=== PATIENT | male | born 1995 | race American Indian/Alaskan Native ===

== ENCOUNTER 2021-12-17 19:58 | Emergency (ER) | payer OTHER ==
[2021-12-17] MEDS ORDERED: CYCLOBENZAPRINE 10 MG TABLET PO STA (21:50)
[2021-12-17] MEDS ORDERED: LIDOCAINE PATCH 5% TOP STA (21:50)
[2021-12-17] MEDS ORDERED: ACETAMINOPHEN 325 MG TABLET PO STA (21:50)
[2021-12-17] MEDS ORDERED: KETOROLAC 60 MG/2 ML VIAL IM STA (22:50)
[2021-12-17] MEDS ORDERED: CYCLOBENZAPRINE 10 MG Prepack 2 PO STA (23:40)
--- NOTE | 2021-12-17 23:51 | ED Physician Documentation ---
History of Present Illness - Stated complaint Stated Complaint: BACK PX - Chief complaint Chief Complaint: Ext Problem - History obtained from History obtained from: Patient - Additonal information Additional information: Patient is a 26-year-old male with mid thoracic back pain that started just prior to arrival. He was helping his spouse lift a bookshelf into a vehicle when he felt sudden pain to the area. He reports having a compression fracture in a similar region when he was in high school from a sledding accident. He otherwise denies fall or recent injury to the area. Denies radiation of the pain. It is sharp it is worse with movement. He has not taken anything for it. Denies fever, difficulty breathing, chest pain, abdominal pain, vomiting, bowel or bladder incontinence.Denies saddle anesthesia. Review of Systems Constitutional: denies: Fever Nose: denies: Congestion Cardiac: denies: Chest pain / pressure, Palpitations Respiratory: denies: Dyspnea, Cough GI: denies: Abdominal Pain, Nausea, Vomiting : denies: Incontinent Skin: denies: Rash Musculoskeletal: reports: Back pain. denies: Extremity pain Neurologic: denies: Numbness, Syncope, Headache, Head injury PD PAST MEDICAL HISTORY - Present Medications Home Medications: Ambulatory Orders Medication Instructions Recorded Confirmed Cyclobenzaprine [Flexeril] 10 mg PO TID PRN #12 tablet 12/17/21 Lidocaine Patch 5% [Lidoderm Patch] 1 patch TOP DAILY PRN #10 patch 12/17/21 - Allergies Allergies/Adverse Reactions: Allergies Allergy/AdvReac Type Severity Reaction Status Date / Time mesalamine [From Pentasa] Allergy Rash Verified 12/17/21 20:04 PD ED PE NORMAL - General General: Alert and oriented X 3, No acute distress, Well developed/nourished - HEENT HEENT: Atraumatic, Moist mucous membranes - Neck Neck: Supple, no meningeal sign, No bony TTP, C-Spine cleared by NEXUS criteria - Cardiac Cardiac: RRR, No murmur, Strong equal pulses - Respiratory Respiratory: No respiratory distress, Clear bilaterally - Abdomen Abdomen: Normal bowel sounds, Soft, Non tender, Non distended - Back Back: No spinal TTP - Derm Derm: No rash - Extremities Extremities: No deformity, No edema, Other (Distal pulses intact, Strength and sensation intact to lower extremities) - Neuro Neuro: Alert and oriented X 3, No motor deficit, No sensory deficit, Normal speech - Psych Psych: Normal mood, Normal affect PD ED PE EXPANDED - Back Back visual: 1 - tenderness (visible spasm) Results - Vitals Vitals: Vital Signs - 24 hr 12/17/21 12/17/21 20:04 23:30 Temperature 36.4 C L Heart Rate 99 97 Respiratory 16 18 Rate Blood Pressure 141/91 H 136/89 H O2 Saturation 96 96 Oxygen O2 Source Room air PD MEDICAL DECISION MAKING - ED course Complexity details: re-evaluated patient, d/w patient, d/w family ED course: Patient evaluated for mid back pain after lifting injury. Neurovascularly intact. No symptoms to suggest epidural abscess or hematoma. No signs of cauda equina. Afebrile. On exam has visible spasm. Do not think his symptoms are suggestive of a cardiac or pulmonary process or dissection. Doubt imaging would be helpful at this time as I do not suspect fracture or dislocation based on mechanism. Patient had improvement with Medications received during his visit. We will continue with supportive care. Patient and spouse were counseled on ret urn precautions. Departure - Departure Disposition: 01 Home, Self Care Clinical Impression: Strain of back Condition: Stable Instructions: ED Back Care Tips Prescriptions: Cyclobenzaprine [Flexeril] 10 mg PO TID PRN #12 tablet PRN Reason: Spasms Lidocaine Patch 5% [Lidoderm Patch] 1 patch TOP DAILY PRN #10 patch PRN Reason: pain Comments: Lawson kaye have been evaluated for pain to your back after an injury this evening. Based on the mechanism I do not suspect that you would have a broken bone and that the pain is likely related to a spasm in your back. You have received medications to help you with this and I have sent prescriptions for lidocaine patches and Flexeril to [place] [facility] [place] Flexeril can cause drowsiness so please do not drive or operate machinery while taking this medication. Also avoid using alcohol while taking this medication.If you have any new or worsening symptoms such as increased pain, change of location to your pain, difficulty breathing, chest pain, leg pain or weakness, trouble controlling your bowel or bladder function please return to the emergency department. Discharge Date/Time: 12/18/21 00:12
[2021-12-18 00:12] VITALS: BP 136/89
== END 2021-12-18 00:12 | disposition home or self-care (01) ==
LOC: ED 19:58
DX: S29.012A Strain of muscle and tendon of back wall of thorax, initial encounter (principal); X50.0XXA Overexertion from strenuous movement or load, initial encounter; Y93.89 Activity, other specified
CPT/HCPCS: 96372; 99282; 99283; A9270

== ENCOUNTER 2022-01-18 01:34 | Emergency (ER) | payer OTHER ==
[2022-01-18 01:59] LABS: BASOPHILS # (AUTO) 0.1 10^3/uL (0.0-0.1); BASOPHILS % (AUTO) 0.5 %; EOSINOPHILS # (AUTO) 0.1 10^3/uL (0.0-0.7); HGB - HEMOGLOBIN 14.1 g/dL (14.0-18.0); LYMPHOCYTES # (AUTO) 1.7 10^3/uL (1.5-3.5); LYMPHOCYTES % (AUTO) 13.5 %; MEAN CORPUSCULAR HGB CONC 32.8 g/dL (32.0-36.0); MEAN CORPUSCULAR VOLUME 79.3 fL (80.0-94.0); MEAN PLATELET VOLUME 9.4 fL (7.4-11.4); MONOCYTES # (AUTO) 0.7 10^3/uL (0.0-1.0); MONOCYTES % (AUTO) 5.8 %; NEUTROPHILS # (AUTO) 9.9 10^3/uL (1.5-6.6); PLT - PLATELET COUNT 423 10^3/uL (130-450); RED BLOOD COUNT 5.42 10^6/uL (4.70-6.10); RED CELL DISTRIBUTION WIDTH 13.3 % (12.0-15.0); WHITE BLOOD COUNT 12.5 x10^3/uL (4.8-10.8)
[2022-01-18 02:00] LABS: BILIRUBIN,URINE NEGATIVE (NEGATIVE); CLARITY,URINE CLEAR (CLEAR); GLUCOSE, URINE (UA) NEGATIVE (NEGATIVE); KETONES,URINE (UA) NEGATIVE (NEGATIVE); LEUKOCYTE ESTERASE, URINE NEGATIVE (NEGATIVE); NITRITE,URINE NEGATIVE (NEGATIVE); OCCULT BLOOD,URINE MODERATE (NEGATIVE); PH,URINE 5.5 PH (5.0-7.5); PROTEIN,URINE NEGATIVE (NEGATIVE); UROBILINOGEN,URINE 0.2 (NORMAL) E.U./dL (NORMAL)
[2022-01-18 02:11] LABS: ALBUMIN 4.4 g/dL (3.2-5.5); ALBUMIN/GLOBULIN RATIO 1.2 (1.0-2.2); BILIRUBIN,TOTAL 0.6 mg/dL (0.2-1.0); CALCIUM 9.8 mg/dL (8.5-10.3); CREATININE 1.6 mg/dL (0.6-1.2); POTASSIUM 3.6 mmol/L (3.5-5.0)
[2022-01-18 02:21] LABS: BACTERIA,URINE None Seen /HPF (None Seen); SQUAMOUS EPITHELIAL CELL,UR NONE SEEN (<= Few); WBC,URINE 0-3 /HPF (0-3)
[2022-01-18] MEDS ORDERED: HYDROmorphone 1 MG/ML CARPUJECT IVP STA ×2 (02:22→03:58)
[2022-01-18] MEDS ORDERED: ONDANSETRON 4 MG/2 ML VIAL IVP STA (02:22)
[2022-01-18] MEDS ORDERED: SODIUM CHLORIDE 0.9% 1,000 ML IV STA (02:22)
--- NOTE | 2022-01-18 03:10 | ED Physician Documentation ---
PD HPI ABD PAIN - Stated complaint Stated Complaint: BACK TO ABD PX - Chief complaint Chief Complaint: Abd Pain - Additional information Additional information: Patient is a 26-year-old male with past medical significant for Crohn's disease on Humira presenting to the emergency department with abdominal pain. Endorses for left-sided abdominal pain ongoing x2 days. Is associated with nausea vomiting. Endorses for chronic diarrhea that is unchanged. Specifically denies for any bloody stools. Denies for any fever at home. Denies similar pain in the past. Review of Systems Ten Systems: 10 systems reviewed and negative Constitutional: denies: Fever GI: reports: Abdominal Pain, Nausea, Vomiting, Diarrhea PD PAST MEDICAL HISTORY - Present Medications Home Medications: Ambulatory Orders Medication Instructions Recorded Confirmed Cyclobenzaprine [Flexeril] 10 mg PO TID PRN #12 tablet 12/17/21 Lidocaine Patch 5% [Lidoderm Patch] 1 patch TOP DAILY PRN #10 patch 12/17/21 Ondansetron Odt [Zofran Odt] 4 mg TL Q6H PRN #10 tablet 01/18/22 oxyCODONE [Roxicodone] 5 mg PO ONCE #10 tablet 01/18/22 - Allergies Allergies/Adverse Reactions: Allergies Allergy/AdvReac Type Severity Reaction Status Date / Time mesalamine [From Pentasa] Allergy Rash Verified 01/18/22 01:46 PD ED PE NORMAL - Vitals Vital signs reviewed: Yes - General General: Alert and oriented X 3. No: No acute distress (Patient holding his side in acute distress.) - HEENT HEENT: Atraumatic, PERRL, EOMI, Ears normal, Moist mucous membranes - Neck Neck: Supple, no meningeal sign, No bony TTP, No adenopathy, No JVD - Cardiac Cardiac: RRR, No murmur, No gallop - Respiratory Respiratory: No respiratory distress, Clear bilaterally - Abdomen Abdomen: Normal bowel sounds, Soft, Non tender - Male Male : Deferred - Rectal Rectal: Deferred - Back Back: No CVA TTP - Derm Derm: Normal color - Extremities Extremities: No deformity, No edema - Neuro Neuro: Alert and oriented X 3, No motor deficit, No sensory deficit Results - Vitals Vitals: Vital Signs - 24 hr 01/18/22 01/18/22 01/18/22 01:42 01:58 02:56 Temperature 36.2 C L Heart Rate 100 80 90 Respiratory 18 22 14 Rate Blood Pressure 127/92 H 129/84 H 147/90 H O2 Saturation 99 98 95 01/18/22 01/18/22 04:00 06:00 Temperature Heart Rate 92 96 Respiratory 18 18 Rate Blood Pressure 120/71 132/77 H O2 Saturation 94 95 Oxygen O2 Source Room air - Labs Labs: Laboratory Tests 01/18/22 01/18/22 01/18/22 01:52 01:52 01:52 WBC 12.5 H RBC 5.42 Hgb 14.1 Hct 43.0 MCV 79.3 L MCH 26.0 L MCHC 32.8 RDW 13.3 Plt Count 423 MPV 9.4 Neut # (Auto) 9.9 H Lymph # (Auto) 1.7 [place] # (Auto) 0.7 Eos # (Auto) 0.1 Baso # (Auto) 0.1 Absolute Nucleated RBC 0.00 Nucleated RBC % 0.0 Sodium 136 Potassium 3.6 Chloride 101 Carbon Dioxide 21 Anion Gap 14.0 H BUN 13 Creatinine 1.6 H Estimated GFR (MDRD) 53 L Glucose 123 H Calcium 9.8 Total Bilirubin 0.6 AST 43 H ALT 74 H Alkaline Phosphatase 47 Total Protein 8.0 Albumin 4.4 Globulin 3.6 Albumin/Globulin Ratio 1.2 Lipase 34 Urine Color YELLOW Urine Clarity CLEAR Urine pH 5.5 Ur Specific [place] >=1.030 H Urine Protein NEGATIVE Urine Glucose (UA) NEGATIVE Urine Ketones NEGATIVE Urine Occult Blood MODERATE H Urine Nitrite NEGATIVE Urine Bilirubin NEGATIVE Urine Urobilinogen 0.2 (NORMAL) Ur Leukocyte Esterase NEGATIVE Urine RBC 6-10 H Urine WBC 0-3 Ur Squamous Epith Cells NONE SEEN Urine Bacteria None Seen Ur Microscopic Review INDICATED Urine Culture Comments NOT INDICATED PD MEDICAL DECISION MAKING - ED course Complexity details: reviewed results, d/w patient, d/w family ED course: Patient is 26-year-old male presenting to the emergency department with left- sided flank and abdominal pain. Past medical significant for Crohn's disease and distant history of partial hemicolectomy. Afebrile, hemodynamically stable on arrival to the emergency department. IV access was obtained and patient was given medication for pain control. Abdominal exam was benign. Labs obtained demonstrated a very minimal leukocytosis as well as a mild elevation in patient's creatinine.Urine negative for indications of infection. Patient received IV hydration. CT of the abdomen pelvis was obtained which demonstrated a 4 mm left-sided obstructive stone in the distal ureter. Patient was observed in the emergency department for several hours. On reevaluation was found to be resting comfortably and in no acute distress. He reported near complete resolution of his symptoms. At this time will discharge with medication for symptomatic management. Encourage careful follow-up with primary care and/or [facility] as needed. Otherwise clear return precautions and follow-up instructions were given prior to discharge. Departure - Departure Disposition: Home, Self Care Clinical Impression: Kidney stone Instructions: ED Stone Renal W Colic Prescriptions: oxyCODONE [Roxicodone] 5 mg PO ONCE #10 tablet Ondansetron Odt [Zofran Odt] 4 mg TL Q6H PRN #10 tablet PRN Reason: Nausea / Vomiting Comments: Thank you for allowing us to care for you today at [facility]. Your prescriptions were sent electronically to the [facility] pharmacy. Thank again for being patient with us this evening. I am sorry about the delays you experienced here in the emergency department. Tonight in the emergency department you are diagnosed with a 4 mm kidney stone. Stones of this size have a high probability of passing on their own Within a few days. I will be discharging with the medication you can take for pain control and nausea. Please drink plenty of fluids and get plenty of rest. Please follow-up with your primary care doctor soon as possible in order to make an appointment for medical recheck. Additionally as needed you can always follow-up directly with [facility]: [place], [place], [phone]
[2022-01-18] MEDS ORDERED: IOVERSOL 320 100 ML VIAL IVP ONE ×2 (03:41→03:57)
[2022-01-18 06:37] VITALS: BP 132/77
--- NOTE | 2022-01-18 08:20 | CT Report ---
PROCEDURE: Abdomen/Pelvis W INDICATIONS: Left flank pain, h/o crones, h/o partial colectomy CONTRAST: IV CONTRAST: Optiray 320 ml: 100 PO CONTRAST: *NO PO CONTRAST TECHNIQUE: After the administration of contrast, 5 mm thick sections acquired from the diaphragms to the sym physis. 5 mm thick coronal and sagittal reformats were acquired. For radiation dose reduction, the following was used: automated exposure control, adjustment of mA and/or kV according to patient size . COMPARISON: None. FINDINGS: Image quality: Excellent. ABDOMEN: Lung bases: Lung bases are clear. Heart size is normal. Solid organs: Liver and spleen are normal in size and enhancement. Gallbladder is normal. Biliary system is non dilated. Pancreas enhances normally. No adrenal nodules. There are multiple bilateral nonobstructing renal calculi. There is decreased left nephrogram and mild left hydronephrosis. The l eft ureter is dilated to the level of a 4 mm calculus located within the distal ureter, proximal to t he UVJ. Peritoneum and bowel: Bowel loops demonstrate normal wall thickness and caliber. No free fluid or a ir. There has been prior right hemicolectomy. A few scattered distal colonic diverticula are present . Mesenteric fat planes are well maintained. Anastomotic sutures are noted in the right lower quadran t. Nodes and vessels: No retroperitoneal or mesenteric adenopathy by size criteria. Aorta and inferior vena cava are normal in size. Miscellaneous: No ventral hernias. PELVIS: Genitourinary: Bladder wall thickness is normal. Miscellaneous: No inguinal hernias or adenopathy. Bones: No suspicious bony lesions. No vertebral body compression fractures. IMPRESSION: 1. 4 mm obstructing calculus within the distal left ureter associated with mild left hydronephrosis. Multiple small bilateral nonobstructing renal calculi are identified as well. 2. Hepatomegaly with fatty infiltration of the liver. Reviewed by: Margarito Ortiz on 01/18/2022 8:19 AM PDT Approved by: Margarito Ortiz on 01/18/2022 8:19 AM PDT Station ID: [id number]
== END 2022-01-18 07:42 | disposition home or self-care (01) ==
LOC: ED 01:34
DX: N13.2 Hydronephrosis with renal and ureteral calculous obstruction (principal)
CPT/HCPCS: 36415; 74177; 80053; 81001; 83690; 85025; 96374; 96376; 99283; 99284; J1170; Q9967; 81003; 87086

== ENCOUNTER 2022-01-26 12:59 | Emergency (ER) | payer OTHER ==
[2022-01-26 13:37] LABS: BASOPHILS # (AUTO) 0.1 10^3/uL (0.0-0.1); BASOPHILS % (AUTO) 0.6 %; EOSINOPHILS # (AUTO) 0.3 10^3/uL (0.0-0.7); EOSINOPHILS % (AUTO) 3.7 %; HCT - HEMATOCRIT 44.6 % (42.0-52.0); HGB - HEMOGLOBIN 14.1 g/dL (14.0-18.0); LYMPHOCYTES # (AUTO) 1.8 10^3/uL (1.5-3.5); LYMPHOCYTES % (AUTO) 19.8 %; MEAN CORPUSCULAR HEMOGLOBIN 25.9 pg (27.0-31.0); MEAN CORPUSCULAR HGB CONC 31.6 g/dL (32.0-36.0); MEAN PLATELET VOLUME 9.5 fL (7.4-11.4); MONOCYTES # (AUTO) 0.9 10^3/uL (0.0-1.0); MONOCYTES % (AUTO) 9.5 %; NEUTROPHILS # (AUTO) 6.1 10^3/uL (1.5-6.6); NEUTROPHILS % (AUTO) 66.1 %; PLT - PLATELET COUNT 363 10^3/uL (130-450); RED BLOOD COUNT 5.44 10^6/uL (4.70-6.10); RED CELL DISTRIBUTION WIDTH 13.9 % (12.0-15.0); WHITE BLOOD COUNT 9.3 x10^3/uL (4.8-10.8)
[2022-01-26] MEDS ORDERED: KETOROLAC 30 MG/ML VIAL IVP STA (13:45)
[2022-01-26] MEDS ORDERED: LIDOCAINE-MPF 2% 7.5 ML in SODIUM CHLORIDE 0.9% 50 ML IV STA (13:45)
--- NOTE | 2022-01-26 13:47 | ED Physician Documentation ---
History of Present Illness - Stated complaint Stated Complaint: LT FLANK PX - Chief complaint Chief Complaint: Abd Pain - History obtained from History obtained from: Patient - History of Present Illness Pain level max: 8 Pain level now: 6 - Additonal information Additional information: 26-year-old male presents to the emergency department left flank pain. Has been ongoing for the past week. He was seen here last week and diagnosed with a 4 mm left ureteral stone. He states he took Percocet this morning but did not help the pain. Nothing makes it better or worse. No vomiting. Some nausea. No fevers. Review of Systems Constitutional: denies: Fever, Chills Respiratory: denies: Cough GI: reports: Nausea. denies: Vomiting, Diarrhea, Hematemesis, Bloody / black stool : denies: Dysuria, Frequency, Hesitancy, Incontinent Skin: denies: Rash Musculoskeletal: denies: Neck pain, Back pain Neurologic: denies: Headache PD PAST MEDICAL HISTORY - Past Medical History Past Medical History: Yes : Kidney stones - Present Medications Home Medications: Ambulatory Orders Medication Instructions Recorded Confirmed Ondansetron Odt [Zofran Odt] 4 mg TL Q6H PRN #10 tablet 01/18/22 01/26/22 oxyCODONE [Roxicodone] 5 mg PO ONCE #10 tablet 01/18/22 01/26/22 Adalimumab [Humira(Cf) Pen] 1 syr INJ UD 01/26/22 01/26/22 Albuterol Sulfate [Proair Hfa 1 puffs INH Q4HR PRN 01/26/22 01/26/22 Inhaler] Fluticasone/Salmeterol [Advair 1 puffs INH DAILY 01/26/22 01/26/22 250-50 Diskus] Ibuprofen [Motrin] 800 mg PO Q8H PRN #30 tablet 01/26/22 Oxycodone HCl/Acetaminophen 1 - 2 each PO Q6H PRN #14 tablet 01/26/22 [Percocet 5-325 mg Tablet] Tamsulosin [Flomax] 0.4 mg PO DAILY #14 cap 01/26/22 - Allergies Allergies/Adverse Reactions: Allergies Allergy/AdvReac Type Severity Reaction Status Date / Time mesalamine [From Pentasa] Allergy Rash Verified 01/26/22 13:17 - Living Situation Living Situation: reports: With family Living Arrangement: reports: At home PD ED PE NORMAL - Vitals Vital signs reviewed: Yes - General General: Alert and oriented X 3, No acute distress - HEENT HEENT: PERRL, Moist mucous membranes - Neck Neck: Supple, no meningeal sign - Cardiac Cardiac: RRR, Strong equal pulses - Respiratory Respiratory: No respiratory distress, Clear bilaterally - Abdomen Abdomen: Soft, Non tender, Non distended - Back Back: No CVA TTP - Derm Derm: Warm and dry - Extremities Extremities: No edema - Neuro Neuro: Alert and oriented X 3 - Psych Psych: Normal mood, Normal affect Results - Vitals Vitals: Vital Signs - 24 hr 01/26/22 01/26/22 13:12 14:55 Temperature 36.3 C L 36.6 C Heart Rate 93 85 Respiratory 16 16 Rate Blood Pressure 139/80 H 144/93 H O2 Saturation 98 99 Oxygen O2 Source Room air - Labs Labs: Laboratory Tests 01/26/22 01/26/22 01/26/22 13:22 13:24 13:24 WBC 9.3 RBC 5.44 Hgb 14.1 Hct 44.6 MCV 82.0 MCH 25.9 L MCHC 31.6 L RDW 13.9 Plt Count 363 MPV 9.5 Neut # (Auto) 6.1 Lymph # (Auto) 1.8 [place] # (Auto) 0.9 Eos # (Auto) 0.3 Baso # (Auto) 0.1 Absolute Nucleated RBC 0.00 Nucleated RBC % 0.0 Sodium 139 Potassium 4.2 Chloride 105 Carbon Dioxide 23 Anion Gap 11.0 BUN 9 Creatinine 1.5 H Estimated GFR (MDRD) 57 L Glucose 103 H Calcium 9.3 Total Bilirubin 0.9 AST 47 H ALT 87 H Alkaline Phosphatase 45 Total Protein 7.9 Albumin 4.2 Globulin 3.7 Albumin/Globulin Ratio 1.1 Lipase 34 Urine Color DARK YELLOW Urine Clarity CLEAR Urine pH 5.5 Ur Specific [place] 1.025 Urine Protein NEGATIVE Urine Glucose (UA) NEGATIVE Urine Ketones NEGATIVE Urine Occult Blood NEGATIVE Urine Nitrite NEGATIVE Urine Bilirubin NEGATIVE Urine Urobilinogen 0.2 (NORMAL) Ur Leukocyte Esterase NEGATIVE Ur Microscopic Review NOT INDICATED Urine Culture Comments NOT INDICATED PD MEDICAL DECISION MAKING - ED course Complexity details: reviewed old records, reviewed results, re-evaluated patient, considered differential, d/w patient ED course: Patient with a known left-sided 4 mm ureteral stone. Pain resolved with Toradol and IV lidocaine. Will place on Motrin, Percocet, Flomax for home. We will have him follow-up with urology for further care. No indication for repeat CT scan at this time. he will increase his water intake at home as well. Patient counseled regarding signs and symptoms for which I believe and urgent re- evaluation would be necessary. Patient with good understanding of and agreement to plan and is comfortable going home at this time This document was made in part using voice recognition software. While efforts are made to proofread this document, sound alike and grammatical errors may occur. Departure - Departure Disposition: Home, Self Care Clinical Impression: Ureteral calculus, left Condition: Good Instructions: ED Stone Renal W Colic Follow-Up: Iqra Ruggiero MD [Provider Admit Priv/Credential] - Kaitlin Zhang MD [Physician No Access] - Prescriptions: Tamsulosin [Flomax] 0.4 mg PO DAILY #14 cap Ibuprofen [Motrin] 800 mg PO Q8H PRN #30 tablet PRN Reason: PAIN &/OR FEVER Oxycodone HCl/Acetaminophen [Percocet 5-325 mg Tablet] 1 - 2 each PO Q6H PRN #14 tablet PRN Reason: pain Comments: Your medications were sent to the [facility] pharmacy in [place]. Drink plenty of water. Return if you worsen. Make sure to follow-up with urology for further care. The stone should be able to pass. The Motrin will help stop the spasming of the ureter. I am prescribing a short course of narcotic pain medication for you. These are potentially dangerous and addictive medications that should be used carefully. These medications may constipate you. Take an [id number] stool softener (docusate) twice daily with plenty of water while taking these medications. If you go 24 hours without a bowel movement, take [id number] miralax, per package instructions. Do not drink or drive while taking these medications. If you received narcotic or sedating medications while in the emergency department, do not drive for 24 hours. Store this medication in a safe, secure place and out of reach of children. It is a violation of federal law to give or sell this medication to another person or to use in a manner other than prescribed. The ED will not refill narcotic prescriptions, including prescriptions lost or stolen. To dispose of unwanted medications: 1. [facility] at [address] in [place] has a medication drop box. They accept prescription medications (in pill form) Friday through Friday 9:00 a.m. to 5:00 p.m. 2. The [facility] [employer] accepts prescription medications (in pill form only) for disposal year round. Call for more information. 3. Contact the [facility] for the next [facility] sponsored prescription drug collection event. , [phone], or [phone]; Discharge Date/Time: 01/26/22 15:03
[2022-01-26 13:53] LABS: ALBUMIN 4.2 g/dL (3.2-5.5); ALBUMIN/GLOBULIN RATIO 1.1 (1.0-2.2); BILIRUBIN,TOTAL 0.9 mg/dL (0.2-1.0); CALCIUM 9.3 mg/dL (8.5-10.3); CREATININE 1.5 mg/dL (0.6-1.2); POTASSIUM 4.2 mmol/L (3.5-5.0); TOTAL PROTEIN 7.9 g/dL (6.7-8.2)
[2022-01-26 14:24] LABS: BILIRUBIN,URINE NEGATIVE (NEGATIVE); GLUCOSE, URINE (UA) NEGATIVE (NEGATIVE); KETONES,URINE (UA) NEGATIVE (NEGATIVE); LEUKOCYTE ESTERASE, URINE NEGATIVE (NEGATIVE); NITRITE,URINE NEGATIVE (NEGATIVE); OCCULT BLOOD,URINE NEGATIVE (NEGATIVE); PH,URINE 5.5 PH (5.0-7.5); PROTEIN,URINE NEGATIVE (NEGATIVE); UROBILINOGEN,URINE 0.2 (NORMAL) E.U./dL (NORMAL)
[2022-01-26 14:25] LABS: CLARITY,URINE CLEAR (CLEAR)
[2022-01-26 14:56] VITALS: BP 144/93
== END 2022-01-26 15:03 | disposition home or self-care (01) ==
LOC: ED 12:59
DX: N20.1 Calculus of ureter (principal)
CPT/HCPCS: 36415; 80053; 81003; 83690; 85025; 96374; 96375; 99284; J7040; 81001; 87086

== ENCOUNTER 2022-05-10 12:37 | Emergency (ER) | payer OTHER ==
[2022-05-10] MEDS ORDERED: HYDROmorphone 1 MG/ML CARPUJECT IVP STA ×3 (12:59→15:59)
[2022-05-10] MEDS ORDERED: SODIUM CHLORIDE 0.9% 1,000 ML IV STA (12:59)
--- NOTE | 2022-05-10 13:00 | ED Physician Documentation ---
PD HPI ABD PAIN - Stated complaint Stated Complaint: ABD PX - Chief complaint Chief Complaint: Abd Pain - History obtained from History obtained from: Patient - Additional information Additional information: 26-year-old gentleman with history of Crohn's first diagnosed in 2017. He has had a 1-1/2 foot bowel resection due to a perforation at that time. He is maintained on semiweekly Humira which he doses at home. Few days ago he ate greasy food and he thinks that is what kicked off his current flare of Crohn's disease with diffuse abdominal pain, vomiting and diarrhea both of which are blood-streaked. He denies fevers. Review of Systems Ten Systems: 10 systems reviewed and negative Constitutional: denies: Fever, Chills Cardiac: denies: Chest pain / pressure, Palpitations Respiratory: denies: Dyspnea, Cough PD PAST MEDICAL HISTORY - Past Medical History : Kidney stones - Present Medications Home Medications: Ambulatory Orders Medication Instructions Recorded Confirmed Ondansetron Odt [Zofran Odt] 4 mg TL Q6H PRN #10 tablet 01/18/22 01/26/22 oxyCODONE [Roxicodone] 5 mg PO ONCE #10 tablet 01/18/22 01/26/22 Adalimumab [Humira(Cf) Pen] 1 syr INJ UD 01/26/22 01/26/22 Albuterol Sulfate [Proair Hfa 1 puffs INH Q4HR PRN 01/26/22 01/26/22 Inhaler] Fluticasone/Salmeterol [Advair 1 puffs INH DAILY 01/26/22 01/26/22 250-50 Diskus] Ibuprofen [Motrin] 800 mg PO Q8H PRN #30 tablet 01/26/22 Oxycodone HCl/Acetaminophen 1 - 2 each PO Q6H PRN #14 tablet 01/26/22 [Percocet 5-325 mg Tablet] Tamsulosin [Flomax] 0.4 mg PO DAILY #14 cap 01/26/22 Ondansetron Odt [Zofran] 4 mg TL Q6H PRN #10 tablet 05/10/22 Oxycodone HCl/Acetaminophen 1 - 2 each PO Q6H PRN #14 tablet 05/10/22 [Percocet 5-325 mg Tablet] predniSONE [Deltasone] 20 mg PO [id number] #21 tab 05/10/22 - Allergies Allergies/Adverse Reactions: Allergies Allergy/AdvReac Type Severity Reaction Status Date / Time mesalamine [From Pentasa] Allergy Rash Verified 05/10/22 12:44 PD ED PE NORMAL - Vitals Vital signs reviewed: Yes - General General: Alert and oriented X 3, Other (He appears uncomfortable and is laying on his right side.) - Cardiac Cardiac: RRR, No murmur - Respiratory Respiratory: No respiratory distress, Clear bilaterally - Abdomen Abdomen: Other (Diminished but not absent bowel sounds, no tenderness.) - Back Back: No CVA TTP, No spinal TTP - Derm Derm: Normal color, Warm and dry - Extremities Extremities: No edema, No calf tenderness / cord - Neuro Neuro: Alert and oriented X 3, Normal speech Results - Vitals Vitals: Vital Signs - 24 hr 05/10/22 05/10/22 12:40 14:44 Temperature 36.8 C Heart Rate 76 72 Respiratory 16 18 Rate Blood Pressure 151/85 H 143/88 H O2 Saturation 100 100 Oxygen O2 Source Room air - Labs Labs: Laboratory Tests 05/10/22 05/10/22 13:25 13:25 WBC 11.6 H RBC 5.33 Hgb 14.2 Hct 43.2 MCV 81.1 MCH 26.6 L MCHC 32.9 RDW 13.9 Plt Count 356 MPV 9.6 Neut # (Auto) 9.4 H Lymph # (Auto) 1.5 [place] # (Auto) 0.6 Eos # (Auto) 0.1 Baso # (Auto) 0.1 Absolute Nucleated RBC 0.00 Nucleated RBC % 0.0 Sodium 139 Potassium 3.6 Chloride 101 Carbon Dioxide 22 Anion Gap 16.0 H BUN 11 Creatinine 1.1 Estimated GFR (MDRD) 81 L Glucose 109 H Calcium 9.9 Total Bilirubin 1.2 H AST 50 H ALT 64 H Alkaline Phosphatase 43 Total Protein 8.2 Albumin 4.7 Globulin 3.5 Albumin/Globulin Ratio 1.3 Lipase 89 H PD MEDICAL DECISION MAKING - ED course ED course: 26-year-old gentleman presents with a Crohn's exacerbation. He was treated is stepwise medications here with improvement in his symptoms and remained without significant tenderness on to repeat examinations here. He passed a p.o. challenge. He declined further observation or inpatient care. This was offered though. Departure - Departure Disposition: 01 Home, Self Care Clinical Impression: Exacerbation of Crohn's disease Condition: Good Record reviewed to determine appropriate education?: Yes Instructions: Disease Crohn Dc Prescriptions: predniSONE [Deltasone] 20 mg PO [id number] #21 tab Oxycodone HCl/Acetaminophen [Percocet 5-325 mg Tablet] 1 - 2 each PO Q6H PRN #14 tablet PRN Reason: pain Ondansetron Odt [Zofran] 4 mg TL Q6H PRN #10 tablet PRN Reason: Nausea / Vomiting Comments: I sent your prescriptions electronically to [facility] in [place]. [place] for next available appointment. Return for new or worsening symptoms. I am prescribing a short course of narcotic pain medication for you. These are potentially dangerous and addictive medications that should be used carefully. These medications may constipate you. Take an ulpv-nqa-pfubtud stool softener (docusate) twice daily with plenty of water while taking these medications. If you go 24 hours without a bowel movement, take ecyo-jlj-nmrzlxh miralax, per package instructions. Do not drink or drive while taking these medications. If you received narcotic or sedating medications while in the emergency department, do not drive for 24 hours. Store this medication in a safe, secure place and out of reach of children. It is a violation of federal law to give or sell this medication to another person or to use in a manner other than prescribed. The ED will not refill narcotic prescriptions, including prescriptions lost or stolen. To dispose of unwanted medications: 1. [facility] at [address] in [place] has a medication drop box. They accept prescription medications (in pill form) Friday through Friday 9:00 a.m. to 5:00 p.m. 2. The [facility] [place] [employer] accepts prescription medications (in pill form only) for disposal year round. Call for more information. 3. Contact the [facility] for the next [facility] sponsored prescription drug collection event. , [phone], or [phone]; Note that many narcotic pain relievers also contain Tylenol/acetaminophen. Please ensure that your total dose of acetaminophen from all sources does not exceed 3 g (3000 mg) per day. Forms: Activity restrictions
[2022-05-10 13:33] LABS: BASOPHILS # (AUTO) 0.1 10^3/uL (0.0-0.1); BASOPHILS % (AUTO) 0.5 %; EOSINOPHILS # (AUTO) 0.1 10^3/uL (0.0-0.7); HCT - HEMATOCRIT 43.2 % (42.0-52.0); HGB - HEMOGLOBIN 14.2 g/dL (14.0-18.0); LYMPHOCYTES # (AUTO) 1.5 10^3/uL (1.5-3.5); LYMPHOCYTES % (AUTO) 12.6 %; MEAN CORPUSCULAR HEMOGLOBIN 26.6 pg (27.0-31.0); MEAN CORPUSCULAR HGB CONC 32.9 g/dL (32.0-36.0); MEAN CORPUSCULAR VOLUME 81.1 fL (80.0-94.0); MEAN PLATELET VOLUME 9.6 fL (7.4-11.4); MONOCYTES # (AUTO) 0.6 10^3/uL (0.0-1.0); MONOCYTES % (AUTO) 4.7 %; NEUTROPHILS # (AUTO) 9.4 10^3/uL (1.5-6.6); NEUTROPHILS % (AUTO) 80.9 %; PLT - PLATELET COUNT 356 10^3/uL (130-450); RED BLOOD COUNT 5.33 10^6/uL (4.70-6.10); RED CELL DISTRIBUTION WIDTH 13.9 % (12.0-15.0); WHITE BLOOD COUNT 11.6 x10^3/uL (4.8-10.8)
[2022-05-10 13:43] LABS: ALBUMIN 4.7 g/dL (3.2-5.5); ALBUMIN/GLOBULIN RATIO 1.3 (1.0-2.2); BILIRUBIN,TOTAL 1.2 mg/dL (0.2-1.0); CALCIUM 9.9 mg/dL (8.5-10.3); CREATININE 1.1 mg/dL (0.6-1.2); POTASSIUM 3.6 mmol/L (3.5-5.0); TOTAL PROTEIN 8.2 g/dL (6.7-8.2)
[2022-05-10] MEDS ORDERED: PROMETHAZINE INJ 25 MG in SODIUM CHLORIDE 0.9% 50 ML IV STA (13:43)
[2022-05-10] MEDS ORDERED: KETOROLAC 15 MG/ML VIAL IVP STA (15:13)
[2022-05-10] MEDS ORDERED: ONDANSETRON 4 MG/2 ML VIAL IVP STA ×2 (15:13→15:59)
[2022-05-10 16:14] VITALS: BP 119/91
== END 2022-05-10 16:13 | disposition home or self-care (01) ==
LOC: ED 12:37
DX: K50.90 Crohn's disease, unspecified, without complications (principal)
CPT/HCPCS: 36415; 80053; 83690; 85025; 96361; 96365; 96375; 96376; 99284; J1170; J7040

== ENCOUNTER 2022-05-11 10:11 | Emergency (ER) | payer OTHER ==
[2022-05-11 11:07] LABS: BASOPHILS # (AUTO) 0.1 10^3/uL (0.0-0.1); BASOPHILS % (AUTO) 0.6 %; EOSINOPHILS # (AUTO) 0.1 10^3/uL (0.0-0.7); EOSINOPHILS % (AUTO) 0.5 %; HCT - HEMATOCRIT 44.3 % (42.0-52.0); HGB - HEMOGLOBIN 14.3 g/dL (14.0-18.0); LYMPHOCYTES # (AUTO) 1.4 10^3/uL (1.5-3.5); LYMPHOCYTES % (AUTO) 10.9 %; MEAN CORPUSCULAR HEMOGLOBIN 26.7 pg (27.0-31.0); MEAN CORPUSCULAR HGB CONC 32.3 g/dL (32.0-36.0); MEAN CORPUSCULAR VOLUME 82.8 fL (80.0-94.0); MEAN PLATELET VOLUME 9.4 fL (7.4-11.4); MONOCYTES # (AUTO) 0.6 10^3/uL (0.0-1.0); MONOCYTES % (AUTO) 4.7 %; NEUTROPHILS # (AUTO) 10.5 10^3/uL (1.5-6.6); NEUTROPHILS % (AUTO) 83.1 %; PLT - PLATELET COUNT 395 10^3/uL (130-450); RED BLOOD COUNT 5.35 10^6/uL (4.70-6.10); WHITE BLOOD COUNT 12.6 x10^3/uL (4.8-10.8)
--- NOTE | 2022-05-11 11:15 | ED Physician Documentation ---
PD HPI ABD PAIN - Stated complaint Stated Complaint: ABD PX/NAUSEA - Chief complaint Chief Complaint: Abd Pain - History obtained from History obtained from: Patient - History of Present Illness Timing - onset: How many days ago (2-3) Timing - duration: Days (2-3) Timing - details: Gradual onset, Still present Quality: Cramping, Aching, Pain. No: Fullness/distended Location: All over / everywhere Radiation: Lower back. No: Chest, Left flank, Right flank Improved by: No: Eating, Vomiting Worsened by: Eating, Palpation Associated symptoms: Nausea, Vomiting, Diarrhea (loose without melena. Has had some mucous in stools.). No: Fever, Constipation Similar symptoms before: Diagnosis (crohns disease) Recently seen: Emergency Dept (yesterday and had IV fluids/meds with improvement. Got Rxs, but the pharmacy did not have them filled before closing. Will have available this afternoon.) Review of Systems Constitutional: denies: Fever, Chills, Myalgias Nose: denies: Rhinorrhea / runny nose, Congestion Throat: denies: Sore throat Respiratory: denies: Cough GI: reports: Abdominal Pain, Nausea, Vomiting, Diarrhea. denies: Hematemesis, Bloody / black stool Skin: denies: Rash, Lesions Neurologic: reports: Generalized weakness. denies: Near syncope, Altered mental status PD PAST MEDICAL HISTORY - Past Medical History Past Medical History: Yes Respiratory: Asthma GI: Crohn's disease : Kidney stones Psych: Depression - Past Surgical History Past Surgical History: Yes General: Bowel surgery - Present Medications Home Medications: Ambulatory Orders Medication Instructions Recorded Confirmed Ondansetron Odt [Zofran Odt] 4 mg TL Q6H PRN #10 tablet 01/18/22 01/26/22 oxyCODONE [Roxicodone] 5 mg PO ONCE #10 tablet 01/18/22 01/26/22 Adalimumab [Humira(Cf) Pen] 1 syr INJ UD 01/26/22 01/26/22 Albuterol Sulfate [Proair Hfa 1 puffs INH Q4HR PRN 01/26/22 01/26/22 Inhaler] Fluticasone/Salmeterol [Advair 1 puffs INH DAILY 01/26/22 01/26/22 250-50 Diskus] Ibuprofen [Motrin] 800 mg PO Q8H PRN #30 tablet 01/26/22 Oxycodone HCl/Acetaminophen 1 - 2 each PO Q6H PRN #14 tablet 01/26/22 [Percocet 5-325 mg Tablet] Tamsulosin [Flomax] 0.4 mg PO DAILY #14 cap 01/26/22 Ondansetron Odt [Zofran] 4 mg TL Q6H PRN #10 tablet 05/10/22 Oxycodone HCl/Acetaminophen 1 - 2 each PO Q6H PRN #14 tablet 05/10/22 [Percocet 5-325 mg Tablet] predniSONE [Deltasone] 20 mg PO [id number] #21 tab 05/10/22 Ondansetron Odt [Zofran] 4 mg TL Q6H PRN #20 tablet 05/11/22 - Allergies Allergies/Adverse Reactions: Allergies Allergy/AdvReac Type Severity Reaction Status Date / Time mesalamine [From Pentasa] Allergy Rash Verified 05/11/22 10:17 - Social History Does the pt smoke?: Yes Smoking Status: Current every day smoker Does the pt drink ETOH?: No Does the pt have substance abuse?: No - POLST Patient has POLST: No PD ED PE NORMAL - Vitals Vital signs reviewed: Yes - General General: Alert and oriented X 3, Well developed/nourished, Other (appears uncomfortable and holding lower abd. Emesis of some bilious fluid. ) - Neck Neck: Supple, no meningeal sign, No adenopathy - Cardiac Cardiac: RRR, No murmur - Respiratory Respiratory: Clear bilaterally - Abdomen Abdomen: Soft, Non distended, No organomegaly, Other (tender diffusely mild, ilene periumbilical around prior scar. Not tender in particular in RLQ. ). No: Normal bowel sounds (diminished diffusely) - Male Male : Deferred - Rectal Rectal: Deferred - Back Back: No CVA TTP - Derm Derm: Warm and dry. No: Normal color (some pallor) - Extremities Extremities: Normal ROM s pain, No edema, No calf tenderness / cord - Neuro Neuro: Alert and oriented X 3, No motor deficit, Normal speech Results - Vitals Vitals: Vital Signs - 24 hr 05/11/22 05/11/22 05/11/22 10:13 10:17 14:25 Temperature 36.4 C L 36.5 C Heart Rate 75 75 84 Respiratory 20 20 16 Rate Blood Pressure 158/99 H 158/99 H 147/86 H O2 Saturation 100 100 99 Oxygen O2 Source Room air - Labs Labs: Laboratory Tests 05/11/22 05/11/22 10:55 10:55 WBC 12.6 H RBC 5.35 Hgb 14.3 Hct 44.3 MCV 82.8 MCH 26.7 L MCHC 32.3 RDW 14.0 Plt Count 395 MPV 9.4 Neut # (Auto) 10.5 H Lymph # (Auto) 1.4 L [place] # (Auto) 0.6 Eos # (Auto) 0.1 Baso # (Auto) 0.1 Absolute Nucleated RBC 0.00 Nucleated RBC % 0.0 Sodium 139 Potassium 3.8 Chloride 103 Carbon Dioxide 22 Anion Gap 14.0 H BUN 8 Creatinine 1.2 Estimated GFR (MDRD) 73 L Glucose 124 H Calcium 10.0 Total Bilirubin 1.4 H AST 54 H ALT 68 H Alkaline Phosphatase 44 Total Protein 8.6 H Albumin 4.8 Globulin 3.8 Albumin/Globulin Ratio 1.3 Lipase 105 H PD MEDICAL DECISION MAKING - ED course Complexity details: reviewed old records, re-evaluated patient (he appears much more comfortable. Not pale anymore. taking sips of water without problems. ), considered differential (seems likely crohns flareup and was treated that way yesterday. Given Rx from ER but pharmacy did not have filled at time they went to chart picker. So no home meds overnight, and return of symptoms. ), d/w patient Departure - Departure Disposition: 01 Home, Self Care Clinical Impression: Nausea & vomiting Qualifiers: Vomiting type: unspecified Qualified Code(s): R11.2 - Nausea with vomiting, unspecified Exacerbation of Crohn's disease Qualifiers: Digestive disease complication type: without complication Qualified Code(s): K50.90 - Crohn's disease, unspecified, without complications Abdominal pain Qualifiers: Abdominal location: generalized Qualified Code(s): R10.84 - Generalized abdominal pain Condition: Stable Record reviewed to determine appropriate education?: Yes Instructions: ED Inflam Bowel Disease Crohn Prescriptions: Ondansetron Odt [Zofran] 4 mg TL Q6H PRN #20 tablet PRN Reason: Nausea / Vomiting Comments: Frequent fluids and electrolyte replacement such as Powerade or similar. Initially simple carbohydrates such as rice breads and pastas are tend to be more easily absorbed. Soups or broths are good as well. Progress diet as tolerated. Use the medication as prescribed yesterday. I wrote an additional prescription for Zofran/ondansetron if you need more. Return to the ER if worsening symptoms again despite the medications. Discharge Date/Time: 05/11/22 14:26
[2022-05-11 11:17] LABS: ALBUMIN 4.8 g/dL (3.2-5.5); ALBUMIN/GLOBULIN RATIO 1.3 (1.0-2.2); BILIRUBIN,TOTAL 1.4 mg/dL (0.2-1.0); CREATININE 1.2 mg/dL (0.6-1.2); POTASSIUM 3.8 mmol/L (3.5-5.0); TOTAL PROTEIN 8.6 g/dL (6.7-8.2)
[2022-05-11] MEDS ORDERED: HYDROmorphone 1 MG/ML CARPUJECT IVP STA ×3 (11:34→13:04)
[2022-05-11] MEDS ORDERED: SODIUM CHLORIDE 0.9% 1,000 ML IV STA (11:34)
[2022-05-11] MEDS ORDERED: ONDANSETRON 4 MG/2 ML VIAL IVP STA (11:34)
[2022-05-11] MEDS ORDERED: DEXAMETHASONE 10 MG/ML VIAL IVP STA (11:34)
[2022-05-11] MEDS ORDERED: KETOROLAC 15 MG/ML VIAL IVP STA (11:34)
[2022-05-11] MEDS ORDERED: DROPERIDOL 5 MG/2 ML VIAL IVP STA (12:16)
[2022-05-11 14:26] VITALS: BP 147/86
== END 2022-05-11 14:26 | disposition home or self-care (01) ==
LOC: ED 10:11
DX: K50.90 Crohn's disease, unspecified, without complications (principal); R10.84 Generalized abdominal pain; F17.200 Nicotine dependence, unspecified, uncomplicated
CPT/HCPCS: 36415; 80053; 83690; 85025; 96374; 96375; 96376; 99282; 99285; J1170

== ENCOUNTER 2022-06-27 06:37 | Emergency (ER) | payer OTHER ==
[2022-06-27] MEDS ORDERED: HYDROmorphone 1 MG/ML CARPUJECT IVP STA (07:03)
[2022-06-27] MEDS ORDERED: SODIUM CHLORIDE 0.9% 1,000 ML IV STA (07:03)
[2022-06-27] MEDS ORDERED: ONDANSETRON 4 MG/2 ML VIAL IVP STA (07:03)
[2022-06-27 07:07] LABS: BASOPHILS # (AUTO) 0.1 10^3/uL (0.0-0.1); BASOPHILS % (AUTO) 0.8 %; EOSINOPHILS # (AUTO) 0.2 10^3/uL (0.0-0.7); EOSINOPHILS % (AUTO) 2.5 %; HCT - HEMATOCRIT 47.2 % (42.0-52.0); HGB - HEMOGLOBIN 14.9 g/dL (14.0-18.0); LYMPHOCYTES # (AUTO) 1.4 10^3/uL (1.5-3.5); LYMPHOCYTES % (AUTO) 16.7 %; MEAN CORPUSCULAR HEMOGLOBIN 25.8 pg (27.0-31.0); MEAN CORPUSCULAR HGB CONC 31.6 g/dL (32.0-36.0); MEAN CORPUSCULAR VOLUME 81.7 fL (80.0-94.0); MEAN PLATELET VOLUME 10.4 fL (7.4-11.4); MONOCYTES # (AUTO) 0.6 10^3/uL (0.0-1.0); MONOCYTES % (AUTO) 7.4 %; NEUTROPHILS # (AUTO) 6.1 10^3/uL (1.5-6.6); NEUTROPHILS % (AUTO) 72.4 %; PLT - PLATELET COUNT 336 10^3/uL (130-450); RED BLOOD COUNT 5.78 10^6/uL (4.70-6.10); RED CELL DISTRIBUTION WIDTH 13.2 % (12.0-15.0); WHITE BLOOD COUNT 8.5 x10^3/uL (4.8-10.8)
--- NOTE | 2022-06-27 07:15 | ED Physician Documentation ---
PD HPI ABD PAIN - Stated complaint Stated Complaint: ABD PX/VOMITING - Chief complaint Chief Complaint: Abd Pain - History obtained from History obtained from: Patient - Additional information Additional information: Patient is a 26-year-old male with a history of Crohn's presenting for evaluation of abdominal pain and nausea with vomiting that started 2 hours ago. He believes this is a Crohn's flare related to eating cereal And milk last night.He does have Zofran at home but was not able to keep it down this morning. He uses Humira twice weekly. His last Crohn's flare was 1 month ago. He has a GI he believes through [place] but is only had a telemetry visit with that provider.His last surgery was a hemicolectomy in 2017. He has chronic diarrhea which is unchanged. He denies fever, chest pain, difficulty breathing. He denies dysuria or hematuria. Review of Systems Constitutional: denies: Fever Nose: denies: Congestion Cardiac: denies: Chest pain / pressure Respiratory: denies: Dyspnea GI: reports: Abdominal Pain, Nausea, Vomiting, Diarrhea. denies: Bloody / black stool : denies: Dysuria Musculoskeletal: denies: Back pain Neurologic: denies: Headache PD PAST MEDICAL HISTORY - Past Medical History Past Medical History: Yes Respiratory: Asthma GI: Crohn's disease : Kidney stones Psych: Depression - Past Surgical History Past Surgical History: Yes General: Bowel surgery - Present Medications Home Medications: Ambulatory Orders Medication Instructions Recorded Confirmed Ondansetron Odt [Zofran Odt] 4 mg TL Q6H PRN #10 tablet 01/18/22 01/26/22 oxyCODONE [Roxicodone] 5 mg PO ONCE #10 tablet 01/18/22 01/26/22 Adalimumab [Humira(Cf) Pen] 1 syr INJ UD 01/26/22 01/26/22 Albuterol Sulfate [Proair Hfa 1 puffs INH Q4HR PRN 01/26/22 01/26/22 Inhaler] Fluticasone/Salmeterol [Advair 1 puffs INH DAILY 01/26/22 01/26/22 250-50 Diskus] Ibuprofen [Motrin] 800 mg PO Q8H PRN #30 tablet 01/26/22 Oxycodone HCl/Acetaminophen 1 - 2 each PO Q6H PRN #14 tablet 01/26/22 [Percocet 5-325 mg Tablet] Tamsulosin [Flomax] 0.4 mg PO DAILY #14 cap 01/26/22 Ondansetron Odt [Zofran] 4 mg TL Q6H PRN #10 tablet 05/10/22 Oxycodone HCl/Acetaminophen 1 - 2 each PO Q6H PRN #14 tablet 05/10/22 [Percocet 5-325 mg Tablet] predniSONE [Deltasone] 20 mg PO [id number] #21 tab 05/10/22 Ondansetron Odt [Zofran] 4 mg TL Q6H PRN #20 tablet 05/11/22 Ondansetron Odt [Zofran] 4 mg TL Q6H PRN #10 tablet 06/27/22 Oxycodone HCl/Acetaminophen 1 each PO Q6H PRN #14 tablet 06/27/22 [Percocet 5-325 mg Tablet] predniSONE [Deltasone] 20 mg PO [id number] #21 tab 06/27/22 - Allergies Allergies/Adverse Reactions: Allergies Allergy/AdvReac Type Severity Reaction Status Date / Time mesalamine [From Pentasa] Allergy Rash Verified 06/27/22 06:47 - Social History Does the pt smoke?: Yes Smoking Status: Current every day smoker Does the pt drink ETOH?: No Does the pt have substance abuse?: No - POLST Patient has POLST: No PD ED PE NORMAL - General General: Alert and oriented X 3, Well developed/nourished, Other (Appears uncomfortable, dry heaving into emesis bag) - HEENT HEENT: Atraumatic, Moist mucous membranes - Neck Neck: Supple, no meningeal sign - Cardiac Cardiac: RRR, Strong equal pulses - Respiratory Respiratory: No respiratory distress, Clear bilaterally - Abdomen Abdomen: Normal bowel sounds, Soft, Non tender, Non distended - Back Back: No CVA TTP - Derm Derm: Warm and dry - Extremities Extremities: No edema - Neuro Neuro: Normal speech Results - Vitals Vitals: Vital Signs - 24 hr 06/27/22 06/27/22 06:45 09:06 Temperature 36 C L Heart Rate 96 51 L Respiratory 18 11 L Rate Blood Pressure 142/92 H 148/91 H O2 Saturation 100 99 Oxygen O2 Source Room air - Labs Labs: Laboratory Tests 1006/27/22 06/27/22 06:59 06:59 08:05 WBC 8.5 RBC 5.78 Hgb 14.9 Hct 47.2 MCV 81.7 MCH 25.8 L MCHC 31.6 L RDW 13.2 Plt Count 336 MPV 10.4 Neut # (Auto) 6.1 Lymph # (Auto) 1.4 L [place] # (Auto) 0.6 Eos # (Auto) 0.2 Baso # (Auto) 0.1 Absolute Nucleated RBC 0.00 Nucleated RBC % 0.0 Sodium 140 Potassium 3.7 Chloride 105 Carbon Dioxide 22 Anion Gap 13.0 BUN 10 Creatinine 1.3 H Estimated GFR (MDRD) 67 L Glucose 107 H Calcium 10.0 Total Bilirubin 0.8 AST 28 ALT 32 Alkaline Phosphatase 46 Total Protein 8.0 Albumin 4.8 Globulin 3.2 Albumin/Globulin Ratio 1.5 Lipase 38 Urine Color YELLOW Urine Clarity CLEAR Urine pH 6.5 Ur Specific [place] 1.015 Urine Protein NEGATIVE Urine Glucose (UA) NEGATIVE Urine Ketones 40 H Urine Occult Blood NEGATIVE Urine Nitrite NEGATIVE Urine Bilirubin NEGATIVE Urine Urobilinogen 0.2 (NORMAL) Ur Leukocyte Esterase NEGATIVE Ur Microscopic Review NOT INDICATED Urine Culture Comments NOT INDICATED PD MEDICAL DECISION MAKING - ED course Complexity details: reviewed results, re-evaluated patient ED course: Pt with abdominal pain and N/V x 1 day, history of Crohns. Abdominal exam is overall benign and N/V improved with meds. Labs reviewed. Pt feels this is similar to his previous Crohns flares. Has had improvements with prednisone in past. He cannot recall the name of his GI. Will start on prednisone and i nstructed on need for close GI follow up. Pt advised on concerning symptoms to return for. 0915 - Pt feeling better. Repeat abdominal exam remains benign. Labs are also reassuring. Departure - Departure Disposition: 01 Home, Self Care Clinical Impression: Exacerbation of Crohn's disease Qualifiers: Digestive disease complication type: without complication Qualified Code(s): K50.90 - Crohn's disease, unspecified, without complications Condition: Stable Instructions: ED Inflam Bowel Disease Crohn Prescriptions: predniSONE [Deltasone] 20 mg PO [id number] #21 tab Oxycodone HCl/Acetaminophen [Percocet 5-325 mg Tablet] 1 each PO Q6H PRN #14 tablet PRN Reason: pain Ondansetron Odt [Zofran] 4 mg TL Q6H PRN #10 tablet PRN Reason: Nausea / Vomiting Comments: Your symptoms suggest a Crohn's flare. Fortunately your vitals and labs are relatively stable.I have sent prescriptions for steroids, pain and nausea medications to the [facility] pharmacy at [facility]. Please call your GI doctor today for a follow-up and please also follow-up with your primary care provider. I am prescribing a short course of narcotic pain medication for you. These are potentially dangerous and addictive medications that should be used carefully. These medications may constipate you. Take an xdts-ntf-toydkqi stool softener (docusate) twice daily with plenty of water while taking these medications. If you go 24 hours without a bowel movement, take glac-eay-meoxoun miralax, per package instructions. Do not drink or drive while taking these medications. If you received narcotic or sedating medications while in the emergency department, do not drive for 24 hours. Store this medication in a safe, secure place and out of reach of children. It is a violation of federal law to give or sell this medication to another person or to use in a manner other than prescribed. The ED will not refill narcotic prescriptions, including prescriptions lost or stolen. To dispose of unwanted medications: 1. [facility] at [address] in [place] has a medication drop box. They accept prescription medications (in pill form) Friday through Friday 9:00 a.m. to 5:00 p.m. 2. The [facility] [employer] accepts prescription medications (in pill form only) for disposal year round. Call for more inform ation. 3. Contact the [facility] for the next [facility] sponsored prescription drug collection event. , [phone], or [phone]; Note that many narcotic pain relievers also contain Tylenol/acetaminophen. Please ensure that your total dose of acetaminophen from all sources does not exceed 3 g (3000 mg) per day. Discharge Date/Time: 06/27/22 10:03
[2022-06-27 07:18] LABS: ALBUMIN 4.8 g/dL (3.2-5.5); ALBUMIN/GLOBULIN RATIO 1.5 (1.0-2.2); BILIRUBIN,TOTAL 0.8 mg/dL (0.2-1.0); CREATININE 1.3 mg/dL (0.6-1.2); POTASSIUM 3.7 mmol/L (3.5-5.0)
[2022-06-27] MEDS ORDERED: PROMETHAZINE 25 MG/1 ML VIAL IM STA (07:37)
[2022-06-27 09:07] VITALS: BP 148/91
[2022-06-27] MEDS ORDERED: KETOROLAC 30 MG/ML VIAL IVP STA (09:18)
[2022-06-27 10:16] LABS: BILIRUBIN,URINE NEGATIVE (NEGATIVE); GLUCOSE, URINE (UA) NEGATIVE (NEGATIVE); KETONES,URINE (UA) 40 mg/dL (NEGATIVE); LEUKOCYTE ESTERASE, URINE NEGATIVE (NEGATIVE); NITRITE,URINE NEGATIVE (NEGATIVE); OCCULT BLOOD,URINE NEGATIVE (NEGATIVE); PH,URINE 6.5 PH (5.0-7.5); PROTEIN,URINE NEGATIVE (NEGATIVE); UROBILINOGEN,URINE 0.2 (NORMAL) E.U./dL (NORMAL)
[2022-06-27 10:23] LABS: CLARITY,URINE CLEAR (CLEAR)
== END 2022-06-27 10:03 | disposition home or self-care (01) ==
LOC: ED 06:37
DX: K50.90 Crohn's disease, unspecified, without complications (principal); F17.200 Nicotine dependence, unspecified, uncomplicated
CPT/HCPCS: 36415; 80053; 81003; 83690; 85025; 96372; 96374; 96375; 99284; 99285; J1170; 81001; 87086

== ENCOUNTER 2022-06-28 08:05 | Emergency (ER) | payer OTHER ==
--- NOTE | 2022-06-28 08:33 | ED Physician Documentation ---
PD HPI NVD - Stated complaint Stated Complaint: NAUSEA/VOMITING/CRAMPING - Chief complaint Chief Complaint: Abd Pain - History obtained from History obtained from: Patient - History of Present Illness Timing - onset: How many days ago (2-3) Timing - duration: Days (2-3) Timing - details: Gradual onset, Still present, Waxing and waning Associated symptoms: Abdominal pain, Loss of appetite. No: Fever, Near syncope / syncope Contributing factors: Other (crohns disease). No: Sick contact, Bad food, Re cent antibiotics Improved by: BM. No: Vomiting Worsened by: Eating Similar symptoms before: Diagnosis (crohns disease with recurring flares. No noted trigger on current exac.) Recently seen: Emergency Dept (yesterday and was improved enough for discharge. Rx for meds but pharmacy did not have scripts ready, so no meds available today.) Review of Systems Constitutional: reports: Myalgias. denies: Fever, Chills Nose: denies: Rhinorrhea / runny nose, Congestion Throat: denies: Sore throat Cardiac: denies: Chest pain / pressure Respiratory: denies: Dyspnea, Cough GI: reports: Abdominal Pain, Nausea, Vomiting, Diarrhea (soft). denies: Abdominal Swelling, Constipation, Hematemesis, Bloody / black stool : denies: Dysuria, Frequency Skin: denies: Rash, Lesions Neurologic: reports: Generalized weakness. denies: Near syncope, Altered mental status, Headache PD PAST MEDICAL HISTORY - Past Medical History Cardiovascular: None Respiratory: Asthma Neuro: None Endocrine/Autoimmune: None GI: Crohn's disease : Kidney stones Psych: Depression - Past Surgical History Past Surgical History: Yes General: Bowel surgery - Present Medications Home Medications: Ambulatory Orders Medication Instructions Recorded Confirmed Ondansetron Odt [Zofran Odt] 4 mg TL Q6H PRN #10 tablet 01/18/22 01/26/22 oxyCODONE [Roxicodone] 5 mg PO ONCE #10 tablet 01/18/22 01/26/22 Adalimumab [Humira(Cf) Pen] 1 syr INJ UD 01/26/22 01/26/22 Albuterol Sulfate [Proair Hfa 1 puffs INH Q4HR PRN 01/26/22 01/26/22 Inhaler] Fluticasone/Salmeterol [Advair 1 puffs INH DAILY 01/26/22 01/26/22 250-50 Diskus] Ibuprofen [Motrin] 800 mg PO Q8H PRN #30 tablet 01/26/22 Oxycodone HCl/Acetaminophen 1 - 2 each PO Q6H PRN #14 tablet 01/26/22 [Percocet 5-325 mg Tablet] Tamsulosin [Flomax] 0.4 mg PO DAILY #14 cap 01/26/22 Ondansetron Odt [Zofran] 4 mg TL Q6H PRN #10 tablet 05/10/22 Oxycodone HCl/Acetaminophen 1 - 2 each PO Q6H PRN #14 tablet 05/10/22 [Percocet 5-325 mg Tablet] predniSONE [Deltasone] 20 mg PO [id number] #21 tab 05/10/22 Ondansetron Odt [Zofran] 4 mg TL Q6H PRN #20 tablet 05/11/22 Ondansetron Odt [Zofran] 4 mg TL Q6H PRN #10 tablet 06/27/22 Oxycodone HCl/Acetaminophen 1 each PO Q6H PRN #14 tablet 06/27/22 [Percocet 5-325 mg Tablet] predniSONE [Deltasone] 20 mg PO [id number] #21 tab 06/27/22 - Allergies Allergies/Adverse Reactions: Allergies Allergy/AdvReac Type Severity Reaction Status Date / Time mesalamine [From Pentasa] Allergy Rash Verified 06/28/22 08:23 - Social History Does the pt smoke?: Yes Smoking Status: Current every day smoker Does the pt drink ETOH?: No Does the pt have substance abuse?: No - POLST Patient has POLST: No PD ED PE NORMAL - Vitals Vital signs reviewed: Yes - General General: Alert and oriented X 3, No acute distress, Well developed/nourished - HEENT HEENT: Pharynx benign. No: Moist mucous membranes - Neck Neck: Supple, no meningeal sign, No adenopathy - Cardiac Cardiac: RRR, No murmur - Respiratory Respiratory: Clear bilaterally - Abdomen Abdomen: Normal bowel sounds, Soft, Non distended, No organomegaly, Other (tender mid abd to upper abd with some guarding. No percussion nor rebound. ) - Male Male : Deferred - Rectal Rectal: Deferred - Back Back: No CVA TTP - Derm Derm: Warm and dry. No: Normal color (pale) - Extremities Extremities: No edema, No calf tenderness / cord - Neuro Neuro: Alert and oriented X 3, No motor deficit, Normal speech Results - Vitals Vitals: Vital Signs - 24 hr 06/28/22 06/28/22 06/28/22 08:20 10:23 12:00 Temperature 36.8 C Heart Rate 86 67 72 Respiratory 18 17 17 Rate Blood Pressure 147/110 H 139/91 H 141/98 H O2 Saturation 100 99 98 06/28/22 14:00 Temperature Heart Rate 75 Respiratory 16 Rate Blood Pressure 135/75 H O2 Saturation 98 Oxygen O2 Source Room air - Labs Labs: Laboratory Tests 06/28/22 08:49 Sodium 140 Potassium 3.4 L Chloride 109 Carbon Dioxide 18 L Anion Gap 13.0 BUN 7 Creatinine 1.2 Estimated GFR (MDRD) 73 L Glucose 134 H Calcium 9.4 Magnesium 1.8 PD MEDICAL DECISION MAKING - ED course Complexity details: reviewed old records (yesterday visit and prior month.), re- evaluated patient (stepwise improvement in nausea from several doses/meds. Pain went away with toradol and dilaudid single doses. ), considered differential, d/w patient Departure - Departure Disposition: 01 Home, Self Care Clinical Impression: Intractable vomiting with nausea, Abdominal pain, Exacerbation of Crohn's disease Condition: Stable Instructions: ED Inflam Bowel Disease Crohn Comments: You do have prescriptions available from your ER visit yesterday. There had been called into the pharmacy. Hopefully they will be available for pickup at this point. Small frequent fluids and bland food as tolerated. Medication for nausea and pain as previously prescribed and steroids as previously prescribed. Return to the ER if needed for recurring more symptoms. Discharge Date/Time: 06/28/22 14:17
[2022-06-28] MEDS ORDERED: HYDROmorphone 1 MG/ML CARPUJECT IVP STA (08:41)
[2022-06-28] MEDS ORDERED: DEXAMETHASONE 10 MG/ML VIAL IVP STA (08:41)
[2022-06-28] MEDS ORDERED: KETOROLAC 15 MG/ML VIAL IVP STA (08:41)
[2022-06-28] MEDS ORDERED: SODIUM CHLORIDE 0.9% 1,000 ML IV STA (08:41)
[2022-06-28] MEDS ORDERED: DROPERIDOL 5 MG/2 ML VIAL IVP STA ×2 (08:41→10:46)
[2022-06-28 09:06] LABS: CALCIUM 9.4 mg/dL (8.5-10.3); CREATININE 1.2 mg/dL (0.6-1.2); MAGNESIUM 1.8 mg/dL (1.7-2.8); POTASSIUM 3.4 mmol/L (3.5-5.0)
[2022-06-28] MEDS ORDERED: POTASSIUM CHLOR 10 MEQ/100 ML 10 MEQ/100 ML BAG IV STA (09:17)
[2022-06-28] MEDS ORDERED: LACTATED RINGERS 1,000 ML IV STA (09:18)
[2022-06-28] MEDS ORDERED: METOCLOPRAMIDE 10 MG/2 ML VIAL IVP STA (09:30)
[2022-06-28] MEDS ORDERED: diphenhydrAMINE INJ 50 MG/ML VIAL IVP STA (09:31)
[2022-06-28] MEDS ORDERED: PROCHLORPERAZINE 10 MG/2 ML VIAL IVP STA (12:38)
[2022-06-28 14:16] VITALS: BP 135/75
== END 2022-06-28 14:17 | disposition home or self-care (01) ==
LOC: ED 08:05
DX: K50.90 Crohn's disease, unspecified, without complications (principal); F17.200 Nicotine dependence, unspecified, uncomplicated
CPT/HCPCS: 36415; 80048; 83735; 96361; 96374; 96375; 99282; 99285; J1170; J1200; J2765; J7120

== ENCOUNTER 2022-06-29 10:34 | Emergency (ER) | payer OTHER ==
[2022-06-29 10:47] LABS: BASOPHILS % (AUTO) 0.4 %; EOSINOPHILS % (AUTO) 0.1 %; HCT - HEMATOCRIT 45.1 % (42.0-52.0); HGB - HEMOGLOBIN 14.2 g/dL (14.0-18.0); LYMPHOCYTES % (AUTO) 19.9 %; MEAN CORPUSCULAR HEMOGLOBIN 25.8 pg (27.0-31.0); MEAN CORPUSCULAR HGB CONC 31.5 g/dL (32.0-36.0); MEAN PLATELET VOLUME 10.1 fL (7.4-11.4); MONOCYTES # (AUTO) 0.8 10^3/uL (0.0-1.0); MONOCYTES % (AUTO) 8.4 %; NEUTROPHILS # (AUTO) 6.9 10^3/uL (1.5-6.6); PLT - PLATELET COUNT 358 10^3/uL (130-450); RED CELL DISTRIBUTION WIDTH 13.4 % (12.0-15.0); WHITE BLOOD COUNT 9.8 x10^3/uL (4.8-10.8)
[2022-06-29] MEDS ORDERED: ONDANSETRON ODT 4 MG TABLET TL STA (11:06)
[2022-06-29 11:13] LABS: MUDS CUTOFF CONCENTRATIONS CUTOFF CONC BELOW:
[2022-06-29 11:16] LABS: BILIRUBIN,URINE NEGATIVE (NEGATIVE); GLUCOSE, URINE (UA) NEGATIVE (NEGATIVE); KETONES,URINE (UA) NEGATIVE (NEGATIVE); LEUKOCYTE ESTERASE, URINE NEGATIVE (NEGATIVE); NITRITE,URINE NEGATIVE (NEGATIVE); OCCULT BLOOD,URINE TRACE-INTA (NEGATIVE); PROTEIN,URINE NEGATIVE (NEGATIVE); UROBILINOGEN,URINE 0.2 (NORMAL) E.U./dL (NORMAL)
[2022-06-29 11:19] LABS: ALBUMIN 4.8 g/dL (3.2-5.5); ALBUMIN/GLOBULIN RATIO 1.5 (1.0-2.2); BILIRUBIN,TOTAL 1.1 mg/dL (0.2-1.0); CALCIUM 10.2 mg/dL (8.5-10.3); CREATININE 1.3 mg/dL (0.6-1.2); POTASSIUM 3.3 mmol/L (3.5-5.0); TOTAL PROTEIN 8.1 g/dL (6.7-8.2)
[2022-06-29 11:21] LABS: CLARITY,URINE CLEAR (CLEAR)
[2022-06-29 11:25] LABS: THC CANNABINOID SCREEN, URINE POSITIVE (NEGATIVE)
[2022-06-29 11:26] LABS: AMPHETAMINE SCREEN,URINE NEGATIVE (NEGATIVE); BARBITURATE SCREEN,UR NEGATIVE (NEGATIVE); BENZODIAZEPINES SCREEN, URINE NEGATIVE (NEGATIVE); COCAINE SCREEN URINE NEGATIVE (NEGATIVE); METHADONE SCREEN, URINE NEGATIVE (NEGATIVE); METHAMPHETAMINES SCREEN, URINE NEGATIVE (NEGATIVE); OPIATE SCREEN, URINE POSITIVE (NEGATIVE); OXYCODONE SCREEN, URINE NEGATIVE (NEGATIVE); PROPOXYPHENE SCREEN, URINE NEGATIVE (NEGATIVE); TRICYCLIC ANTIDEPRESSANT,URINE NEGATIVE (NEGATIVE)
[2022-06-29] MEDS ORDERED: SODIUM CHLORIDE 0.9% 1,000 ML IV STA (11:31)
[2022-06-29] MEDS ORDERED: PROCHLORPERAZINE 10 MG/2 ML VIAL IVP STA (11:31)
--- NOTE | 2022-06-29 11:34 | ED Physician Documentation ---
History of Present Illness - Stated complaint Stated Complaint: VOMITING BLOOD - Chief complaint Chief Complaint: Abd Pain - Additonal information Additional information: 26-year-old male presents emergency department for evaluation of uncontrolled nausea and vomiting. This is the third ED visit in 3 days. He reports that he began having uncontrolled nausea and vomiting 3 days ago after eating some cereal and milk. He does have a history of Crohn's for which she takes Humira twice weekly. He denies that he has missed any doses. Since being seen he reports [place] for prednisone, oxycodone and Zofran. He has been using leftover Zofran at home without control of his symptoms. He reports that today with worsening upper abdominal pain he would vomited and had some spotty blood in it. He denies melena or hematochezia. Does have a past surgical history of a right hemicolectomy. He denies fevers. Denies alcohol or NSAID use. States that he is a daily smoker. Review of Systems Constitutional: denies: Fever, Chills Eyes: reports: Reviewed and negative Nose: reports: Reviewed and negative Throat: reports: Reviewed and negative Cardiac: reports: Chest pain / pressure Respiratory: reports: Reviewed and negative GI: reports: Abdominal Pain, Nausea, Vomiting, Hematemesis. denies: Bloody / black stool : reports: Reviewed and negative Skin: reports: Reviewed and negative Musculoskeletal: reports: Reviewed and negative Neurologic: reports: Reviewed and negative PD PAST MEDICAL HISTORY - Past Medical History Cardiovascular: None Respiratory: Asthma Neuro: None Endocrine/Autoimmune: None GI: Crohn's disease : Kidney stones Psych: Depression - Past Surgical History Past Surgical History: Yes General: Bowel surgery - Present Medications Home Medications: Ambulatory Orders Medication Instructions Recorded Confirmed Ondansetron Odt [Zofran Odt] 4 mg TL Q6H PRN #10 tablet 01/18/22 01/26/22 oxyCODONE [Roxicodone] 5 mg PO ONCE #10 tablet 01/18/22 01/26/22 Adalimumab [Humira(Cf) Pen] 1 syr INJ UD 01/26/22 01/26/22 Albuterol Sulfate [Proair Hfa 1 puffs INH Q4HR PRN 01/26/22 01/26/22 Inhaler] Fluticasone/Salmeterol [Advair 1 puffs INH DAILY 01/26/22 01/26/22 250-50 Diskus] Ibuprofen [Motrin] 800 mg PO Q8H PRN #30 tablet 01/26/22 Oxycodone HCl/Acetaminophen 1 - 2 each PO Q6H PRN #14 tablet 01/26/22 [Percocet 5-325 mg Tablet] Tamsulosin [Flomax] 0.4 mg PO DAILY #14 cap 01/26/22 Ondansetron Odt [Zofran] 4 mg TL Q6H PRN #10 tablet 05/10/22 Oxycodone HCl/Acetaminophen 1 - 2 each PO Q6H PRN #14 tablet 05/10/22 [Percocet 5-325 mg Tablet] predniSONE [Deltasone] 20 mg PO [id number] #21 tab 05/10/22 Ondansetron Odt [Zofran] 4 mg TL Q6H PRN #20 tablet 05/11/22 Ondansetron Odt [Zofran] 4 mg TL Q6H PRN #10 tablet 06/27/22 Oxycodone HCl/Acetaminophen 1 each PO Q6H PRN #14 tablet 06/27/22 [Percocet 5-325 mg Tablet] predniSONE [Deltasone] 20 mg PO [id number] #21 tab 06/27/22 Prochlorperazine [Compazine] 5 mg PO Q6H PRN #10 tablet 06/29/22 - Allergies Allergies/Adverse Reactions: Allergies Allergy/AdvReac Type Severity Reaction Status Date / Time mesalamine [From Pentasa] Allergy Rash Verified 06/28/22 08:23 - Social History Does the pt smoke?: Yes Smoking Status: Current every day smoker Does the pt drink ETOH?: No Does the pt have substance abuse?: No - POLST Patient has POLST: No PD ED PE NORMAL - General General: Alert and oriented X 3 - HEENT HEENT: Atraumatic, Moist mucous membranes - Neck Neck: Supple, no meningeal sign, No adenopathy - Cardiac Cardiac: RRR, No murmur, No gallop - Respiratory Respiratory: No respiratory distress, Clear bilaterally - Abdomen Abdomen: Normal bowel sounds, Soft. No: Non tender (Mild epigastric tenderness without guarding or rebound.) - Back Back: No CVA TTP, No spinal TTP - Derm Derm: Normal color, Warm and dry - Extremities Extremities: No deformity, No tenderness to palpate, Normal ROM s pain - Neuro Neuro: Alert and oriented X 3, strap sewer 2-12 intact Eye Opening: Spontaneous Motor: Obeys Commands Verbal: Oriented GCS Score: 15 Results - Vitals Vitals: Vital Signs - 24 hr 06/29/22 06/29/22 06/29/22 10:47 12:50 14:00 Temperature 37.0 C Heart Rate 100 84 84 Respiratory 19 19 18 Rate Blood Pressure 166/99 H 151/103 H 144/108 H O2 Saturation 100 100 100 Oxygen O2 Source Room air - Labs Labs: Laboratory Tests 06/29/22 06/29/22 06/29/22 10:44 10:44 11:08 WBC 9.8 RBC 5.50 Hgb 14.2 Hct 45.1 MCV 82.0 MCH 25.8 L MCHC 31.5 L RDW 13.4 Plt Count 358 MPV 10.1 Neut # (Auto) 6.9 H Lymph # (Auto) 2.0 [place] # (Auto) 0.8 Eos # (Auto) 0.0 Baso # (Auto) 0.0 Absolute Nucleated RBC 0.00 Nucleated RBC % 0.0 Sodium 139 Potassium 3.3 L Chloride 101 Carbon Dioxide 23 Anion Gap 15.0 H BUN 6 Creatinine 1.3 H Estimated GFR (MDRD) 67 L Glucose 104 H Calcium 10.2 Total Bilirubin 1.1 H AST 38 ALT 28 Alkaline Phosphatase 41 L Total Protein 8.1 Albumin 4.8 Globulin 3.3 Albumin/Globulin Ratio 1.5 Lipase 38 Urine Color YELLOW Urine Clarity CLEAR Urine pH 7.0 Ur Specific [place] 1.010 Urine Protein NEGATIVE Urine Glucose (UA) NEGATIVE Urine Ketones NEGATIVE Urine Occult Blood TRACE-INTA Urine Nitrite NEGATIVE Urine Bilirubin NEGATIVE Urine Urobilinogen 0.2 (NORMAL) Ur Leukocyte Esterase NEGATIVE Ur Microscopic Review NOT INDICATED Urine Culture Comments NOT INDICATED Urine Opiates Screen POSITIVE H Ur Oxycodone Screen NEGATIVE Urine Methadone Screen NEGATIVE Ur Propoxyphene Screen NEGATIVE Ur Barbiturates Screen NEGATIVE Ur Tricyclics Screen NEGATIVE Ur Phencyclidine Scrn NEGATIVE Ur Amphetamine Screen NEGATIVE U Methamphetamines Scrn NEGATIVE U Benzodiazepines Scrn NEGATIVE Urine Cocaine Screen NEGATIVE U Cannabinoids Screen POSITIVE H - Rads (name of study) CT abd Radiology: Final report received (No hydronephrosis. No obstructing kidney stones. Multiple bilateral nonobstructing kidney stones. Ileocecal anastomosis unchanged. No free fluid no dilated loops of bowel.) PD MEDICAL DECISION MAKING - ED course Complexity details: reviewed results, re-evaluated patient, considered differential, d/w patient ED course: This is a 26-year-old male that returns the emergency department now for the third day for what he reports as uncontrolled nausea and vomiting. Reports a history of Crohn's for which he takes Humira. Does have a history of right hemicolectomy. The patient has been seen previously and prescribed analgesia and antinausea as well as a steroid burst but he reports has been unable to fill it at the pharmacy. The patient denies that he is having bloody mucoid or black stools most of the pain is epigastric and causing persistent nausea. His urine drug screen is positive for cannabis. I discussed this finding with the patient and we discussed the likelihood that this could be cannabis associated cyclic vomiting syndrome. He did report using cannabis before the symptoms began but states he has never had similar with use in the past. I am less doubtful for "Crohn's flare" given the lack of bloody or mucoid stools and the location of his tenderness. Will defer imaging unless were unable to get appropriate symptom control. Patient was administered Inapsine initially though he is not vomiting he reports persistent nausea thus we will follow-up with a dose of Compazine. 1325: Patient has vomited about 200 mils of generally clear though somewhat brown emesis. Will order an additional dose of Inapsine and given difficulty with control of symptoms will order noncontrast CT of the abdomen. 1437: following additional dose of inapsine and zofran, pt is now tolerating sips of clear liquids. Subsequent CT scan was unremarkable for acute surgical findings. I discussed with patient at the bedside that I suspected the cause of the symptoms was related to cannabis use. He reports that he is felt better over the last 24 hours when he does take a hot shower which tends to be a hallmark sign. At this time patient is stable for discharge home now that we have some symptom control and the ability to tolerate clear liquids. A prescription for Compazine has been sent to the [facility] in [place]. He has unfilled prescriptions for Zofran and pain medication at the [facility] [place] Emergent return precautions were discussed for worsening symptoms. Departure - Departure Disposition: 01 Home, Self Care Clinical Impression: Nausea and vomiting Qualifiers: Vomiting type: unspecified Qualified Code(s): R11.2 - Nausea with vomiting, unspecified Condition: Stable Prescriptions: Prochlorperazine [Compazine] 5 mg PO Q6H PRN #10 tablet PRN Reason: Nausea / Vomiting Comments: Lawson you return to the emergency department today because you have had uncontrolled nausea and vomiting. You are unable to fill your prescriptions [place] However as we discussed at the bedside you did consume cannabis on Friday and your vomiting began shortly after that. Here in the emergency department your CBC and electrolytes did not show any worrisome findings. The CT of your abdomen did not show anything concerning such as a bowel obstruction, appendicitis or findings to suggest cholelithiasis. As we discussed I suspect that a major cause of your symptoms may be cannabis use. I have sent a prescription for Compazine to the [facility] in [place]. Nausea and vomiting associated with cannabis use will typically just get better on its own after a few days. I encourage you to have clear sips of liquids over the next 24 to 48 hours. His nausea and vomiting improves then slowly advance your diet. At any point you find your symptoms or not well controlled despite the use of the Compazine or Zofran at home, you have uncontrolled vomiting, black or bloody stools, fevers then please return immediately to the ER for second evaluation.
[2022-06-29] MEDS ORDERED: DROPERIDOL 5 MG/2 ML VIAL IVP STA ×2 (11:42→13:21)
[2022-06-29] MEDS ORDERED: PANTOPRAZOLE 40 MG VIAL IVP STA (13:38)
[2022-06-29] MEDS ORDERED: ONDANSETRON 4 MG/2 ML VIAL IVP STA (13:54)
--- NOTE | 2022-06-29 14:17 | CT Report ---
PROCEDURE: ABDOMEN/PELVIS WO INDICATIONS: uncontrolled N/v; hx of Crohn's disease TECHNIQUE: Noncontrast 5 mm thick sections acquired from the diaphragms to the symphysis. 5 mm coronal and sagi ttal reformats were then performed. For radiation dose reduction, the following was used: automated exposure control, adjustment of mA and/or kV according to patient size. COMPARISON: CT abdomen pelvis 01/18/2022. FINDINGS: Image quality: Excellent. Evaluation of the solid parenchymal organs is limited without IV contrast. ABDOMEN: Lung bases: Lung bases are clear. Heart size is normal. Solid organs: Liver and spleen are normal in size. Gallbladder is unremarkable. Pancreas is normal in contours. No adrenal nodules. Kidneys are normal in size, without hydronephrosis. Multiple smal l nonobstructing kidney stones bilaterally.. Peritoneum and bowel: Prior resection with ileocolic anastomosis in the right abdomen. No small bowel obstruction. No conspicuous stricture. Stomach is not distended. No free fluid or air. Nodes and vessels: No retroperitoneal or mesenteric adenopathy by size criteria. Aorta and inferior vena cava are normal in caliber. Miscellaneous: No ventral hernias. Ventral abdominal wall scar. PELVIS: Genitourinary: Bladder wall thickness is normal. No stones. Miscellaneous: No inguinal hernias or adenopathy. Bones: No suspicious bony lesions. No vertebral body compression fractures. IMPRESSION: 1. No hydronephrosis. No obstructing kidney stones. 2. Multiple bilateral nonobstructing kidney stones. 3. Ileocolic anastomosis is unchanged. No free fluid. No dilated loops of bowel. Reviewed by: Carlos Zhang MD on 06/29/2022 1:16 PM [facility] Approved by: Carlos Zhang MD on 06/29/2022 1:16 PM [facility] Station ID: [id number]
[2022-06-29 14:43] VITALS: BP 146/110
== END 2022-06-29 14:53 | disposition home or self-care (01) ==
LOC: ED 10:34
DX: R11.2 Nausea with vomiting, unspecified (principal); F17.200 Nicotine dependence, unspecified, uncomplicated
CPT/HCPCS: 36415; 74176; 80053; 80306; 81003; 83690; 85025; 96361; 96374; 96375; 96376; 99284; Q0162; 81001; 87086

== ENCOUNTER 2022-06-30 22:24 | Emergency (ER) | payer OTHER ==
[2022-06-30] MEDS ORDERED: DROPERIDOL 5 MG/2 ML VIAL IM STA (22:59)
[2022-06-30] MEDS ORDERED: DEXAMETHASONE 10 MG/ML VIAL IM STA (22:59)
[2022-06-30] MEDS ORDERED: KETOROLAC 60 MG/2 ML VIAL IM STA (22:59)
--- NOTE | 2022-06-30 23:03 | ED Physician Documentation ---
PD HPI NVD - Stated complaint Stated Complaint: ABD PX/ N/V/D - Chief complaint Chief Complaint: Abd Pain - History obtained from History obtained from: Patient - Additonal information Additional information: The patient returns to the emergency department for the fourth day in a row which chief complaint of abdominal pain, nausea, and vomiting. The patient has a history of Crohn's disease and also, of cannabis abuse with suspected cannabis hyperemesis syndrome. He has on his visits in the last few days had 2 sets of normal laboratory studies and also, a CT scan of the abdomen and pelvis yester day that was unremarkable. The patient has required multiple medications and has the first couple days been given narcotics. 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 No other complaints at this time. He does state that he has been able to take some Pedialyte and water, though he reports vomiting these up eventually. Review of Systems Ten Systems: 10 systems reviewed and negative Constitutional: reports: Reviewed and negative Eyes: reports: Reviewed and negative Ears: reports: Reviewed and negative Nose: reports: Reviewed and negative Throat: reports: Reviewed and negative Cardiac: reports: Reviewed and negative Respiratory: reports: Reviewed and negative GI: reports: Abdominal Pain, Nausea, Vomiting : reports: Reviewed and negative Skin: reports: Reviewed and negative Musculoskeletal: reports: Reviewed and negative Neurologic: reports: Reviewed and negative Psychiatric: reports: Reviewed and negative Endocrine: reports: Reviewed and negative Immunocompromised: reports: Reviewed and negative PD PAST MEDICAL HISTORY - Past Medical History Cardiovascular: None Respiratory: Asthma Neuro: None Endocrine/Autoimmune: None GI: Crohn's disease : Kidney stones Psych: Depression - Past Surgical History Past Surgical History: Yes General: Bowel surgery - Present Medications Home Medications: Ambulatory Orders Medication Instructions Recorded Confirmed Ondansetron Odt [Zofran Odt] 4 mg TL Q6H PRN #10 tablet 01/18/22 01/26/22 oxyCODONE [Roxicodone] 5 mg PO ONCE #10 tablet 01/18/22 01/26/22 Adalimumab [Humira(Cf) Pen] 1 syr INJ UD 01/26/22 01/26/22 Albuterol Sulfate [Proair Hfa 1 puffs INH Q4HR PRN 01/26/22 01/26/22 Inhaler] Fluticasone/Salmeterol [Advair 1 puffs INH DAILY 01/26/22 01/26/22 250-50 Diskus] Ibuprofen [Motrin] 800 mg PO Q8H PRN #30 tablet 01/26/22 Oxycodone HCl/Acetaminophen 1 - 2 each PO Q6H PRN #14 tablet 01/26/22 [Percocet 5-325 mg Tablet] Tamsulosin [Flomax] 0.4 mg PO DAILY #14 cap 01/26/22 Ondansetron Odt [Zofran] 4 mg TL Q6H PRN #10 tablet 05/10/22 Oxycodone HCl/Acetaminophen 1 - 2 each PO Q6H PRN #14 tablet 05/10/22 [Percocet 5-325 mg Tablet] predniSONE [Deltasone] 20 mg PO [id number] #21 tab 05/10/22 Ondansetron Odt [Zofran] 4 mg TL Q6H PRN #20 tablet 05/11/22 Ondansetron Odt [Zofran] 4 mg TL Q6H PRN #10 tablet 06/27/22 Oxycodone HCl/Acetaminophen 1 each PO Q6H PRN #14 tablet 06/27/22 [Percocet 5-325 mg Tablet] predniSONE [Deltasone] 20 mg PO [id number] #21 tab 06/27/22 Prochlorperazine [Compazine] 5 mg PO Q6H PRN #10 tablet 06/29/22 - Allergies Allergies/Adverse Reactions: Allergies Allergy/AdvReac Type Severity Reaction Status Date / Time mesalamine [From Pentasa] Allergy Rash Verified 06/30/22 22:31 - Social History Does the pt smoke?: Yes Smoking Status: Current every day smoker Does the pt drink ETOH?: No Does the pt have substance abuse?: No - POLST Patient has POLST: No PD ED PE NORMAL - Vitals Vital signs reviewed: Yes - General General: Alert and oriented X 3, No acute distress, Well developed/nourished, Other (The patient appears mildly uncomfortable, but is sitting up In bed, conversing comfortably, not holding the emesis bag or retching.) - HEENT HEENT: Atraumatic, PERRL, EOMI, Moist mucous membranes - Neck Neck: Supple, no meningeal sign - Cardiac Cardiac: RRR, No murmur, Strong equal pulses - Respiratory Respiratory: No respiratory distress, Clear bilaterally - Abdomen Abdomen: Soft, Non tender, Non distended - Derm Derm: Normal color, Warm and dry, No rash - Extremities Extremities: No deformity, No edema - Neuro Neuro: Alert and oriented X 3, Other (Grossly intact) - Psych Psych: Normal mood, Normal affect Results - Vitals Vitals: Vital Signs - 24 hr 06/30/22 06/30/22 22:31 23:38 Temperature 36.4 C L Heart Rate 87 98 Respiratory 20 18 Rate Blood Pressure 156/109 H 146/87 H O2 Saturation 100 99 Oxygen O2 Source Room air PD MEDICAL DECISION MAKING - ED course Complexity details: considered differential, d/w patient ED course: I discussed with the patient that this is the fourth time we have seen him and he has still failed to cherry picker operator all the medications he was prescribed from the very first visit. We have had many patients with viral syndromes that have required steroid prescriptions and they have had no trouble getting them filled, it is not exactly clear why this patient continues to apparently have issues with multiple pharmacies not having the medications that he was prescribed days ago for the same symptoms. The patient has had extensive work-up which has been negative, and has repeatedly wanted pain medication on his visits. He has asked again today, and I have advised him that I will not be giving him anything narcotic. The patient actually appears reasonably well and I have advised him that I will give him some IM shots of medication and that he will need to take his home medications and call his GI specialist in the morning. Once again, he has been advised to stop smoking marijuana. There is no evidence of an emergent condition at this time. Departure - Departure Disposition: 01 Home, Self Care Clinical Impression: Cannabinoid hyperemesis syndrome Crohn's disease Qualifiers: Gastrointestinal tract location: unspecified location Digestive disease complication type: without complication Qualified Code(s): K50.90 - Crohn's disease, unspecified, without complications Condition: Stable Instructions: ED Inflam Bowel Disease Crohn, ED Marijuana Abuse, ED Nausea Vomiting Comments: You have been seen for the fourth day in a row in the emergency department with ongoing nausea. You have had extensive work-up in the emergency department with both blood work and CT imaging, with no evidence of a Crohn's flare or other serious condition or complication. While it is possible that you have a viral syndrome, it is also very possible that the marijuana use has triggered a hyperemesis syndrome, which is a common and unfortunate condition of refractory nausea. It is highly advisable therefore, especially in light of your underlying Crohn's disease, to leave off use of marijuana. If this is a viral syndrome, it will resolve on its own, given time, and there is no way to speed up this process. You will need to discuss with your primary doctor and/your GI specialist any further need for medication for anxiety or pain at home. No further narcotics can be prescribed from the emergency department. Please do not delay further in picking up your steroid prescription from the pharmacy. This is a very common medication category that is prescribed and there should not be any trouble getting steroids at any of the area pharmacies. Please continue to take your home medications as needed.
[2022-06-30 23:40] VITALS: BP 146/87
--- NOTE | 2022-07-01 12:21 | ED Physician Documentation ---
ED Addendum - Addendum Addendum: 07/01/22 12:20 The patient called the ER and nursing took information. At currently he was expecting a prescription for steroids to [facility] pharmacy. Reading the note from the provider last night, does sound like that may been the intent. There was no prescription written for. I wrote for Decadron 4 mg tablets daily for 7 days and transmitted it.
== END 2022-06-30 23:46 | disposition home or self-care (01) ==
LOC: ED 22:24
DX: R11.2 Nausea with vomiting, unspecified (principal); K50.90 Crohn's disease, unspecified, without complications; F17.200 Nicotine dependence, unspecified, uncomplicated
CPT/HCPCS: 96372; 99283; 99284

== ENCOUNTER 2022-11-05 02:53 | Emergency (ER) | payer OTHER ==
[2022-11-05] MEDS ORDERED: SODIUM CHLORIDE 0.9% 1,000 ML IV STA (04:40)
[2022-11-05] MEDS ORDERED: ONDANSETRON 4 MG/2 ML VIAL IVP STA (04:40)
[2022-11-05] MEDS ORDERED: HYDROmorphone 1 MG/ML CARPUJECT IVP STA (04:40)
[2022-11-05] MEDS ORDERED: SIMETHICONE 40 MG/0.6 ML 30 ML BOTTLE PO STA (04:41)
[2022-11-05] MEDS ORDERED: KETOROLAC 15 MG/ML VIAL IVP STA (04:41)
--- NOTE | 2022-11-05 04:44 | ED Physician Documentation ---
History of Present Illness - Stated complaint Stated Complaint: NAUSEA/ABD PX - Chief complaint Chief Complaint: Abd Pain - History obtained from History obtained from: Patient - Additonal information Additional information: 27-year-old man with history of Crohn's disease presents with about 48 hours of nonbloody nonbilious nausea and vomiting and nonbloody diarrhea as well as diffuse abdominal pain.Denies fever, urinary symptoms, or chest pain or shortness of breath. Review of Systems Constitutional: denies: Fever Cardiac: denies: Chest pain / pressure Respiratory: denies: Dyspnea GI: reports: Abdominal Pain, Nausea, Vomiting, Diarrhea Neurologic: reports: Generalized weakness, Other (dizziness) PD PAST MEDICAL HISTORY - Past Medical History Cardiovascular: None Respiratory: Asthma Neuro: None Endocrine/Autoimmune: None GI: Crohn's disease : Kidney stones Psych: Depression - Past Surgical History Past Surgical History: Yes General: Bowel surgery - Present Medications Home Medications: Ambulatory Orders Medication Instructions Recorded Confirmed Ondansetron Odt [Zofran Odt] 4 mg TL Q6H PRN #10 tablet 01/18/22 01/26/22 oxyCODONE [Roxicodone] 5 mg PO ONCE #10 tablet 01/18/22 01/26/22 Adalimumab [Humira(Cf) Pen] 1 syr INJ UD 01/26/22 01/26/22 Albuterol Sulfate [Proair Hfa 1 puffs INH Q4HR PRN 01/26/22 01/26/22 Inhaler] Fluticasone/Salmeterol [Advair 1 puffs INH DAILY 01/26/22 01/26/22 250-50 Diskus] Ibuprofen [Motrin] 800 mg PO Q8H PRN #30 tablet 01/26/22 Oxycodone HCl/Acetaminophen 1 - 2 each PO Q6H PRN #14 tablet 01/26/22 [Percocet 5-325 mg Tablet] Tamsulosin [Flomax] 0.4 mg PO DAILY #14 cap 01/26/22 Ondansetron Odt [Zofran] 4 mg TL Q6H PRN #10 tablet 05/10/22 Oxycodone HCl/Acetaminophen 1 - 2 each PO Q6H PRN #14 tablet 05/10/22 [Percocet 5-325 mg Tablet] predniSONE [Deltasone] 20 mg PO [id number] #21 tab 05/10/22 Ondansetron Odt [Zofran] 4 mg TL Q6H PRN #20 tablet 05/11/22 Ondansetron Odt [Zofran] 4 mg TL Q6H PRN #10 tablet 06/27/22 Oxycodone HCl/Acetaminophen 1 each PO Q6H PRN #14 tablet 06/27/22 [Percocet 5-325 mg Tablet] predniSONE [Deltasone] 20 mg PO [id number] #21 tab 06/27/22 Prochlorperazine [Compazine] 5 mg PO Q6H PRN #10 tablet 06/29/22 dexAMETHasone [Decadron] 4 mg PO DAILY 7 Days #7 tablet 07/01/22 Ketorolac [Toradol] 10 mg PO Q6H PRN #20 tablet 11/05/22 Ondansetron Odt [Zofran Odt] 4 mg TL Q6H PRN #10 tablet 11/05/22 Promethazine Supp [Phenergan Supp] 25 mg NM Q8HR PRN #5 supp 11/05/22 - Allergies Allergies/Adverse Reactions: Allergies Allergy/AdvReac Type Severity Reaction Status Date / Time mesalamine [From Pentasa] Allergy Rash Verified 11/05/22 03:11 - Social History Does the pt smoke?: Yes Smoking Status: Current every day smoker Does the pt drink ETOH?: No Does the pt have substance abuse?: No - POLST Patient has POLST: No PD ED PE NORMAL - Vitals Vital signs reviewed: Yes - General General: Alert and oriented X 3, No acute distress, Well developed/nourished - HEENT HEENT: Atraumatic, PERRL, EOMI - Neck Neck: Supple, no meningeal sign - Cardiac Cardiac: RRR - Respiratory Respiratory: No respiratory distress, Clear bilaterally - Abdomen Abdomen: Non tender, Non distended, Other (Diffuse discomfort to palpation) Results - Vitals Vitals: Vital Signs - 24 hr 11/05/22 11/05/22 03:06 04:59 Temperature 36.7 C Heart Rate 96 57 L Respiratory 22 24 Rate Blood Pressure 134/101 H 155/100 H O2 Saturation 100 100 Oxygen O2 Source Room air - Labs Labs: Laboratory Tests 11/05/22 11/05/22 04:34 04:34 WBC 13.6 H RBC 5.83 Hgb 14.8 Hct 46.1 MCV 79.1 L MCH 25.4 L MCHC 32.1 RDW 13.6 Plt Count 433 MPV 10.1 Neut # (Auto) 11.3 H Lymph # (Auto) 1.4 L [place] # (Auto) 0.8 Eos # (Auto) 0.0 Baso # (Auto) 0.1 Absolute Nucleated RBC 0.00 Nucleated RBC % 0.0 Sodium 141 Potassium 3.2 L Chloride 102 Carbon Dioxide 21 Anion Gap 18.0 H BUN 10 Creatinine 1.2 Estimated GFR (MDRD) 73 L Glucose 140 H Calcium 10.1 Total Bilirubin 1.1 H AST 39 ALT 38 Alkaline Phosphatase 50 Total Protein 8.9 H Albumin 4.8 Globulin 4.1 Albumin/Globulin Ratio 1.2 Lipase 34 PD Medical Decision Making - ED course ED course: 27-year-old man presents with nausea, vomiting, diarrhea, and abdominal pain consistent with likely viral gastroenteritis. Vital signs were benign and exam is benign with a nontender abdomen. CBC and abdominal panel ordered. Symptomatic care provided with IV fluids, IV Dilaudid, IV Toradol, and IV Zofran. We will plan to reassess. Patient with significant improvement in pain and nausea s/p meds. likely viral gastroenteritis, reflected in elevated wbc count. otherwise labs unremarkable. stable chronic anemia with Hb 11.5. Plan to co and f/u [facility]. return precautions given. Departure - Departure Disposition: 01 Home, Self Care Clinical Impression: Vomiting, Abdominal pain, Diarrhea Condition: Stable Instructions: ED Vomiting Diarrhea Nonspecific Ad Prescriptions: Promethazine Supp [Phenergan Supp] 25 mg NM Q8HR PRN #5 supp PRN Reason: Nausea / Vomiting Ketorolac [Toradol] 10 mg PO Q6H PRN #20 tablet PRN Reason: Pain Ondansetron Odt [Zofran Odt] 4 mg TL Q6H PRN #10 tablet PRN Reason: Nausea / Vomiting
[2022-11-05 04:46] LABS: BASOPHILS # (AUTO) 0.1 10^3/uL (0.0-0.1); BASOPHILS % (AUTO) 0.4 %; EOSINOPHILS % (AUTO) 0.2 %; HCT - HEMATOCRIT 46.1 % (42.0-52.0); HGB - HEMOGLOBIN 14.8 g/dL (14.0-18.0); LYMPHOCYTES # (AUTO) 1.4 10^3/uL (1.5-3.5); MEAN CORPUSCULAR HEMOGLOBIN 25.4 pg (27.0-31.0); MEAN CORPUSCULAR HGB CONC 32.1 g/dL (32.0-36.0); MEAN CORPUSCULAR VOLUME 79.1 fL (80.0-94.0); MEAN PLATELET VOLUME 10.1 fL (7.4-11.4); MONOCYTES # (AUTO) 0.8 10^3/uL (0.0-1.0); NEUTROPHILS # (AUTO) 11.3 10^3/uL (1.5-6.6); PLT - PLATELET COUNT 433 10^3/uL (130-450); RED BLOOD COUNT 5.83 10^6/uL (4.70-6.10); RED CELL DISTRIBUTION WIDTH 13.6 % (12.0-15.0); WHITE BLOOD COUNT 13.6 x10^3/uL (4.8-10.8)
[2022-11-05 05:00] LABS: ALBUMIN 4.8 g/dL (3.2-5.5); ALBUMIN/GLOBULIN RATIO 1.2 (1.0-2.2); BILIRUBIN,TOTAL 1.1 mg/dL (0.2-1.0); CALCIUM 10.1 mg/dL (8.5-10.3); CREATININE 1.2 mg/dL (0.6-1.2); POTASSIUM 3.2 mmol/L (3.5-5.0); TOTAL PROTEIN 8.9 g/dL (6.7-8.2)
[2022-11-05] MEDS ORDERED: SIMETHICONE CHEW 80 MG TABLET PO ONE (05:29)
[2022-11-05 06:37] VITALS: BP 126/90
[2022-11-06] MEDS ORDERED: SIMETHICONE CHEW 80 MG TABLET PO SCH (05:20)
== END 2022-11-05 06:45 | disposition home or self-care (01) ==
LOC: ED 02:53
DX: R10.84 Generalized abdominal pain (principal); R19.7 Diarrhea, unspecified; R11.10 Vomiting, unspecified; F17.200 Nicotine dependence, unspecified, uncomplicated
CPT/HCPCS: 36415; 80053; 83690; 85025; 96374; 96375; 99283; 99284; A9270; J1170

== ENCOUNTER 2022-12-27 15:24 | Outpatient (CLI) | payer OTHER ==
[2022-12-27 17:54] LABS: BASOPHILS # (AUTO) 0.1 10^3/uL (0.0-0.1); BASOPHILS % (AUTO) 0.7 %; EOSINOPHILS # (AUTO) 0.1 10^3/uL (0.0-0.7); EOSINOPHILS % (AUTO) 1.8 %; HCT - HEMATOCRIT 50.1 % (42.0-52.0); HGB - HEMOGLOBIN 15.2 g/dL (14.0-18.0); LYMPHOCYTES # (AUTO) 1.5 10^3/uL (1.5-3.5); LYMPHOCYTES % (AUTO) 22.3 %; MEAN CORPUSCULAR HEMOGLOBIN 25.6 pg (27.0-31.0); MEAN CORPUSCULAR HGB CONC 30.3 g/dL (32.0-36.0); MEAN CORPUSCULAR VOLUME 84.5 fL (80.0-94.0); MEAN PLATELET VOLUME 10.7 fL (7.4-11.4); MONOCYTES # (AUTO) 0.8 10^3/uL (0.0-1.0); MONOCYTES % (AUTO) 12.6 %; NEUTROPHILS # (AUTO) 4.2 10^3/uL (1.5-6.6); NEUTROPHILS % (AUTO) 62.3 %; PLT - PLATELET COUNT 396 10^3/uL (130-450); RED BLOOD COUNT 5.93 10^6/uL (4.70-6.10); RED CELL DISTRIBUTION WIDTH 14.6 % (12.0-15.0); WHITE BLOOD COUNT 6.7 x10^3/uL (4.8-10.8)
[2022-12-27 18:30] LABS: ALBUMIN 4.3 g/dL (3.2-5.5); ALBUMIN/GLOBULIN RATIO 1.1 (1.0-2.2); BILIRUBIN,TOTAL 0.5 mg/dL (0.2-1.0); CREATININE 1.4 mg/dL (0.6-1.2); POTASSIUM 3.6 mmol/L (3.5-5.0); TOTAL PROTEIN 8.2 g/dL (6.7-8.2)
== END 2022-12-27 15:25 | disposition home or self-care (01) ==
LOC: LAB.N 15:24
PROVIDERS: ATTEND Registered Nurse
DX: R19.7 Diarrhea, unspecified (principal); R11.2 Nausea with vomiting, unspecified
CPT/HCPCS: 36415; 80053; 83690; 85025

== ENCOUNTER 2023-11-24 07:16 | Emergency (ER) | payer OTHER ==
--- NOTE | 2023-11-24 08:02 | ED Physician Documentation ---
PD HPI LOWER EXT INJURY - Stated complaint Stated Complaint: RT FOOT TOE PX - Chief complaint Chief Complaint: Trauma Ext - History obtained from History obtained from: Patient - History of Present Illness PD HPI LOW EXT INJURY LOCATION: Right, Toe Type of injury: No: Fall, Twist, Blunt / blow Timing - onset: How many days ago (2-3 days of increasing tenderness and pain with redness and some swelling. No skin lesions. No obvious injury.) Timing - duration: Days Timing - details: Gradual onset, Still present Worsened by: Moving, Palpating Associated symptoms: Swelling, Discolored. No: Weakness, Numbness Similar symptoms before: Has not had sx before Review of Systems Constitutional: denies: Fever, Chills Skin: denies: Abrasion (s), Laceration (s) PD PAST MEDICAL HISTORY - Past Medical History Past Medical History: Yes Cardiovascular: None Respiratory: Asthma Neuro: None Endocrine/Autoimmune: None GI: Crohn's disease : Kidney stones Psych: Depression - Past Surgical History Past Surgical History: Yes General: Bowel surgery - Present Medications Home Medications: Ambulatory Orders Medication Instructions Recorded Confirmed Adalimumab [Humira(Cf) Pen] 1 syr INJ UD 01/26/22 11/24/23 Albuterol Sulfate [Proair Hfa 1 puffs INH Q4HR PRN 01/26/22 11/24/23 Inhaler] Fluticasone/Salmeterol [Advair 1 puffs INH DAILY 01/26/22 11/24/23 250-50 Diskus] Colchicine 0.6 mg PO TID 5 Days #15 tablet 11/24/23 Lidocaine Patch 5% [Lidoderm Patch] 1 patch TOP DAILY PRN #10 patch 11/24/23 Oxycodone HCl/Acetaminophen 1 each PO Q4H PRN #14 tablet 11/24/23 [Percocet 7.5-325 mg Tablet] buPROPion HCl [Wellbutrin Sr] 400 mg PO DAILY 11/24/23 11/24/23 dexAMETHasone [Decadron] 4 mg PO DAILY #5 tablet 11/24/23 - Allergies Allergies/Adverse Reactions: Allergies Allergy/AdvReac Type Severity Reaction Status Date / Time mesalamine [From Pentasa] Allergy Rash Verified 11/24/23 07:33 - Social History Does the pt smoke?: Yes Smoking Status: Current every day smoker Does the pt drink ETOH?: No Does the pt have substance abuse?: No - POLST Patient has POLST: No PD ED PE NORMAL - Vitals Vital signs reviewed: Yes - General General: Alert and oriented X 3, Well developed/nourished, Other (appears in significant pain. ) - Derm Derm: Normal color, Warm and dry - Extremities Extremities: Other (right great toe at MTP with local redness, swelling, some effusion, and extremely tender to even light touch. No skin sores. Rest of foot and ankle not tender. ) - Neuro Neuro: Alert and oriented X 3, No motor deficit, No sensory deficit, Normal speech Results - Vitals Vitals: Oxygen O2 Source Room air PD Medical Decision Making - ED course Complexity details: considered differential (pain is gradual and has become severe, wtith very localized tender/red/pain at great toe MTP. No skin sores. Presume gout vs local tendonitis, with gout more likely. No history of it. Commonly do not do much work up for single episode. ), d/w patient Departure - Departure Disposition: 01 Home, Self Care Clinical Impression: Pain of right great toe Condition: Stable Record reviewed to determine appropriate education?: Yes Instructions: ED Arthritis Gout Follow-Up: MICHAELA ESCALANTE DO [Primary Care Provider] - Prescriptions: Colchicine 0.6 mg PO TID 5 Days #15 tablet dexAMETHasone [Decadron] 4 mg PO DAILY #5 tablet Lidocaine Patch 5% [Lidoderm Patch] 1 patch TOP DAILY PRN #10 patch PRN Reason: pain Oxycodone HCl/Acetaminophen [Percocet 7.5-325 mg Tablet] 1 each PO Q4H PRN #14 tablet PRN Reason: Pain 5-7 Comments: The location and character and progression of your symptoms sound gout-like. It could be a tendinitis around the base of the toe as well. Your x-ray does not show any bony abnormalities in the area and the radiology report concurs with this. There does not appear to be enough fluid in the joint to try to drain some all 4 diagnostic testing. There is no skin lesions in the area to suggest nidus for infection. At this point treating it as gout or tendinitis is reasonable empirically. The degree of pain is very suggestive of gout. Again this can be a response to a minor injury that then precipitate some crystals in the area and be a one-time episode as opposed to becoming a pattern. If this resolves well over the next several days and completely by 5 to 6 days then continue normal medications activity etc. If you get any further episodes, then further blood testing or such may be helpful. At this point most the time is not. For now I would suggest using some anti-inflammatories with a combination of Decadron steroid daily for 5 more days. This should not irritate your Crohn's and in fact could be helpful or preventative. Avoid NSAIDs for now since you are taking the steroid I will anti-inflammatory. We can approach with a different anti-inflammatory as well called colchicine 2-3 times daily for the next several days as well. Add Tylenol 500 to 650 mg 4 times daily if regularly for the next few days and add oxycodone/acetaminophen if needed for the worst pain. This would be likely needed just the first 2 to 3 days. I would anticipate this to tapering down over the next several days and be resolved by 4 to 6 days. I also wrote for some lidocaine patches to use around the base of the toe area. He can cut him to more appropriate sizing to wrap around there. I sent your prescriptions to your preferred pharmacy. I am prescribing a short course of narcotic pain medication for you. These are potentially dangerous and addictive medications that should be used carefully. These medications may constipate you. Take an [id number] stool softener such as docusate twice daily with plenty of water while taking these medications. If you go 24 hours without a bowel movement, take [id number] MiraLAX, per package instructions. Do not drink or drive while taking these medications. If you received narcotic or sedating medications while in the emergency department do not drive for 24 hours. Store this medication in a safe, secure place and out of reach of children. It is a violation of federal law to give or sell this medication to another person or to use in a manner other than prescribed. The ED will not refill narcotic prescriptions, including prescriptions lost or stolen. You can dispose of unwanted medications at [facility] office or at several pharmacies such as [facility]. Forms: PCP List Discharge Date/Time: 11/24/23 09:57
[2023-11-24] MEDS: dexAMETHasone 4 MG TABLET PO STA (08:56)
[2023-11-24] MEDS: oxyCODONE 5 MG TABLET PO STA (08:57)
[2023-11-24] MEDS: KETOROLAC 30 MG/ML VIAL IM STA (09:00)
[2023-11-24] MEDS: LIDOCAINE PATCH 5% TOP STA (09:02)
[2023-11-24 10:07] VITALS: BP 143/84; O2SAT 100
--- NOTE | 2023-11-24 10:27 | XRAY Report ---
PROCEDURE: Foot 3+V RT INDICATIONS: Trauma TECHNIQUE: 3 views of the foot were acquired. COMPARISON: None. FINDINGS: Bones: Suspected multi partite sesamoid bones at the area of pain. No displaced fracture or dislocati on. Soft tissues: No suspicious calcifications. IMPRESSION: No acute radiographic/osseous abnormality. Suspected multi partite coins are seen at the area of pain at the first ray. If there is high concern for further derangement, consider MRI evaluation. Images were up loaded into PACS for radiologist interpretation at 10:20 AM on 11/24/2023. Reviewed by: Farrukh Cobos MD on 11/24/2023 10:25 AM PDT Approved by: Farrukh Cobos MD on 11/24/2023 10:25 AM PDT Station ID: [id number]
== END 2023-11-24 09:57 | disposition home or self-care (01) ==
LOC: ED 07:16
DX: M79.674 Pain in right toe(s) (principal); F17.200 Nicotine dependence, unspecified, uncomplicated; Z79.899 Other long term (current) drug therapy; Z79.51 Long term (current) use of inhaled steroids
CPT/HCPCS: 73630; 96372; 99283; A9270; J8540

== ENCOUNTER 2023-12-08 14:30 | Outpatient (CLI) | payer OTHER ==
[2023-12-08 23:16] LABS: CHLAMYDIA TRACHOMATIS DNA NEGATIVE (NEGATIVE); NEISSERIA GONORRHOEAE DNA NEGATIVE (NEGATIVE); TRICHOMONAS VAGINALIS DNA NEGATIVE (NEGATIVE)
[2023-12-09 03:10] LABS: HIV SCREEN 4TH GENERATION Non Reactive (Non Reactive)
[2023-12-09 05:12] LABS: HSV 1 IGG TYPE SPEC <0.91 index (0.00-0.90); HSV 2 IGG TYPE SPEC <0.91 index (0.00-0.90)
[2023-12-09 08:10] LABS: RPR Non Reactive (Non Reactive)
== END 2023-12-08 14:45 | disposition home or self-care (01) ==
LOC: LAB.N 14:30
PROVIDERS: ATTEND Family Medicine
DX: Z11.3 Encounter for screening for infections with a predominantly sexual mode of transmission (principal)
CPT/HCPCS: 36415; 86592; 86695; 86696; 86803; 87389; 87491; 87591; 87661

== ENCOUNTER 2024-02-20 23:40 | Emergency (ER) | payer OTHER ==
[2024-02-21 00:23] LABS: BASOPHILS # (AUTO) 0.1 10^3/uL (0.0-0.1); BASOPHILS % (AUTO) 0.6 %; EOSINOPHILS # (AUTO) 0.2 10^3/uL (0.0-0.7); EOSINOPHILS % (AUTO) 1.2 %; HCT - HEMATOCRIT 47.9 % (42.0-52.0); LYMPHOCYTES # (AUTO) 2.2 10^3/uL (1.5-3.5); LYMPHOCYTES % (AUTO) 16.4 %; MEAN CORPUSCULAR HEMOGLOBIN 24.5 pg (27.0-31.0); MEAN CORPUSCULAR HGB CONC 31.3 g/dL (32.0-36.0); MEAN CORPUSCULAR VOLUME 78.3 fL (80.0-94.0); MEAN PLATELET VOLUME 10.1 fL (7.4-11.4); MONOCYTES # (AUTO) 0.8 10^3/uL (0.0-1.0); NEUTROPHILS # (AUTO) 10.1 10^3/uL (1.5-6.6); NEUTROPHILS % (AUTO) 75.7 %; PLT - PLATELET COUNT 472 10^3/uL (130-450); RED BLOOD COUNT 6.12 10^6/uL (4.70-6.10); RED CELL DISTRIBUTION WIDTH 15.5 % (12.0-15.0); WHITE BLOOD COUNT 13.3 x10^3/uL (4.8-10.8)
--- NOTE | 2024-02-21 00:27 | ED Physician Documentation ---
PD HPI ABD PAIN - Stated complaint Stated Complaint: VOMIT - Chief complaint Chief Complaint: Abd Pain - History obtained from History obtained from: Patient - Additional information Additional information: HPI from patient. Patient complains of rapid onset of nausea, vomiting, and generalized abdominal pain at approximately 8 PM tonight. There was no inciting event. No apparent exacerbating nor ameliorating factors. "A little bit" (per patient) of diarrhea tonight, as well. He also noted a small amount of blood in vomitus, bright red. Patient has had similar ED presentations in the past. Past medical history includes renal colic, Crohn's disease; past surgical history includes partial/hemicolectomy due to complication of Crohn's disease. Patient says he missed his last Humira dose Review of Systems Cardiac: reports: Reviewed and negative Respiratory: reports: Reviewed and negative GI: reports: Abdominal Pain, Nausea, Vomiting, Diarrhea, Hematemesis. denies: Bloody / black stool PD PAST MEDICAL HISTORY - Past Medical History Cardiovascular: None Respiratory: Asthma Neuro: None Endocrine/Autoimmune: None GI: Crohn's disease : Kidney stones Psych: Depression - Past Surgical History Past Surgical History: Yes General: Bowel surgery - Present Medications Home Medications: Ambulatory Orders Medication Instructions Recorded Confirmed Adalimumab [Humira(Cf) Pen] 1 syr INJ UD 01/26/22 11/24/23 Albuterol Sulfate [Proair Hfa 1 puffs INH Q4HR PRN 01/26/22 11/24/23 Inhaler] Fluticasone Propion/Salmeterol 1 puffs INH DAILY 01/26/22 11/24/23 [Advair 250-50 Diskus] Colchicine 0.6 mg PO TID 5 Days #15 tablet 11/24/23 Lidocaine Patch 5% [Lidoderm Patch] 1 patch TOP DAILY PRN #10 patch 11/24/23 Oxycodone HCl/Acetaminophen 1 each PO Q4H PRN #14 tablet 11/24/23 [Percocet 7.5-325 mg Tablet] buPROPion HCl [Wellbutrin Sr] 400 mg PO DAILY 11/24/23 11/24/23 dexAMETHasone [Decadron] 4 mg PO DAILY #5 tablet 11/24/23 Ondansetron Odt [Zofran] 4 mg TL Q6H PRN #14 tablet 01/25/24 Promethazine [Phenergan] 25 mg PO Q6H PRN #10 tab 01/25/24 oxyCODONE [Roxicodone] 5 - 10 mg PO Q6H PRN #14 tablet 01/25/24 Ondansetron Odt [Zofran] 4 mg TL Q6H PRN #10 tablet 02/21/24 Oxycodone HCl/Acetaminophen 1 - 2 each PO Q6H PRN #14 tablet 02/21/24 [Percocet 5-325 mg Tablet] Promethazine [Phenergan] 25 mg PO Q6H PRN #10 tablet 02/21/24 - Allergies Allergies/Adverse Reactions: Allergies Allergy/AdvReac Type Severity Reaction Status Date / Time mesalamine [From Pentasa] Allergy Rash Verified 02/20/24 23:57 - Social History Does the pt smoke?: Yes Smoking Status: Current every day smoker Does the pt drink ETOH?: No Does the pt have substance abuse?: No - POLST Patient has POLST: No PD ED PE NORMAL - Vitals Vital signs reviewed: Yes - General General: Alert and oriented X 3, Well developed/nourished, Other (appears to be in moderate painful distress) - HEENT HEENT: Other (tacky/pasty mucous membranes) - Cardiac Cardiac: RRR, No murmur - Respiratory Respiratory: No respiratory distress, Clear bilaterally - Abdomen Abdomen: Soft, Non distended - Derm Derm: Normal color, Warm and dry PD ED PE EXPANDED - Abdomen Abdomen: Tender to palpation (mild TTP across lower abdomen without rebound or guarding) Results - Vitals Vitals: Vital Signs - 24 hr 02/20/24 23:59 Temperature 36.1 C L Heart Rate 90 Respiratory 14 Rate Blood Pressure 144/83 H O2 Saturation 100 Oxygen O2 Source Room air - Labs Labs: Laboratory Tests 02/21/24 02/21/24 00:12 00:12 WBC 13.3 H RBC 6.12 H Hgb 15.0 Hct 47.9 MCV 78.3 L MCH 24.5 L MCHC 31.3 L RDW 15.5 H Plt Count 472 H MPV 10.1 Neut # (Auto) 10.1 H Lymph # (Auto) 2.2 Kingfisher # (Auto) 0.8 Eos # (Auto) 0.2 Baso # (Auto) 0.1 Absolute Nucleated RBC 0.00 Nucleated RBC % 0.0 Sodium 139 Potassium 3.4 L Chloride 102 Carbon Dioxide 20 L Anion Gap 17.0 H BUN 12 Creatinine 1.4 H Estimated GFR (MDRD) 60 L Glucose 125 H Calcium 10.4 H Total Bilirubin 0.7 AST 26 ALT 37 Alkaline Phosphatase 55 Total Protein 8.9 Albumin 5.0 Globulin 3.9 Albumin/Globulin Ratio 1.3 Lipase 13 PD Medical Decision Making - ED course Complexity details: reviewed old records, reviewed results, re-evaluated patient, considered differential, d/w patient ED course: Mild leukocytosis (WBC 13.3). Minimally elevated creatinine, calcium. Potassium minimally below normal range (3.4). Patient is given 1 L normal saline IV, 25 mg promethazine IV, 1 mg IV hydromorphone. On reevaluation, he reports near-resolution of the pain, and significant improvement in the nausea but requests more anti-nausea medication. He is given 8 mg IV Zofran. On reevaluation after the Zofran, he reports feeling well and ready for discharge home. We reviewed results of tonight's tests, return precautions were discussed. On reexam of his abdomen prior to discharge, he is nontender. Given only mild tenderness on initial exam, and nontender on reexam after only a single dose of 1 mg IV Dilaudid, emergent imaging is not indicated at this time. He is given take-home packs of Percocet and Zofran. I electronically submitted prescriptions for Zofran, promethazine, and Percocet to the [facility] pharmacy in [place]. I did point out to the patient that the [facility] pharmacy will be closed throughout the weekend and offered to send the prescription to a different pharmacy or else provide him printed-out prescriptions. He says he thinks he will make it through the weekend and due to cost-related issues with other pharmacies, he still wants the prescriptions electronically submitted to the [facility] pharmacy. Relevantly, when patient was here last month for similar symptoms (I was the on-due to ED physician), I submitted the same prescriptions to the [facility] pharmacy and he says he never needed to pick them up. Indeed, [facility] records do not reflect that these prescriptions from last month were ever picked up. Departure - Departure Disposition: 01 Home, Self Care Clinical Impression: Vomiting and diarrhea Abdominal pain Qualifiers: Abdominal location: generalized Qualified Code(s): R10.84 - Generalized abdominal pain Condition: Good Instructions: ED Abdominal Pain Unkn Cause Male Prescriptions: Oxycodone HCl/Acetaminophen [Percocet 5-325 mg Tablet] 1 - 2 each PO Q6H PRN #14 tablet PRN Reason: pain Promethazine [Phenergan] 25 mg PO Q6H PRN #10 tablet PRN Reason: Nausea / Vomiting Ondansetron Odt [Zofran] 4 mg TL Q6H PRN #10 tablet PRN Reason: Nausea / Vomiting Comments: There were no concerning findings on tonight's blood tests. As we discussed, there were few mild abnormalities. Your white blood cell count was slightly elevated, your creatinine (kidney function test) and calcium levels were minimally above normal range, and your potassium was minimally below normal range. Your liver function tests were normal tonight (you had mildly elevated liver enzyme tests on last month's ER visit). I have electronically submitted prescriptions for ondansetron (antinausea medication), promethazine (a different antinausea medication to be used if the ondansetron is ineffective), and Percocet (narcotic/opiate pain medication) to the [facility] pharmacy in [place]. I am prescribing a short course of narcotic pain medication for you. These are potentially dangerous and addictive medications that should be used carefully. These medications may constipate you. Take an [id number] stool softener (docusate) twice daily with plenty of water while taking these medications. If you go 24 hours without a bowel movement, take [id number] miralax, per package instructions. Do not drink or drive while taking these medications. If you received narcotic or sedating medications while in the emergency department, do not drive for 24 hours. Store this medication in a safe, secure place and out of reach of children. It is a violation of federal law to give or sell this medication to another person or to use in a manner other than prescribed. The ED will not refill narcotic prescriptions, including prescriptions lost or stolen. To dispose of unwanted medications: 1. [facility] [address] in [place] has a medication drop box. They accept prescription medications (in pill form) Friday through Friday 9:00 a.m. to 5:00 p.m. 2. [facility] accepts prescription medications (in pill form only) for disposal year round. Call for more information. 3. Contact the [facility] for the next [facility] sponsored prescription drug collection event. , [phone], or [phone];
[2024-02-21 00:29] LABS: BILIRUBIN,TOTAL 0.7 mg/dL (0.2-1.0); CALCIUM 10.4 mg/dL (8.5-10.3); POTASSIUM 3.4 mmol/L (3.5-4.5)
[2024-02-21 00:33] LABS: ALBUMIN/GLOBULIN RATIO 1.3 (1.0-2.2); CREATININE 1.4 mg/dL (0.6-1.3); TOTAL PROTEIN 8.9 g/dL (6.4-8.9)
[2024-02-21] MEDS ORDERED: PROMETHAZINE 25 MG/1 ML VIAL ONE (00:41)
[2024-02-21] MEDS: HYDROmorphone 1 MG/ML CARPUJECT IVP STA (00:42)
[2024-02-21] MEDS: PROMETHAZINE INJ 25 MG in SODIUM CHLORIDE 0.9% 50 ML IV STA (00:43)
[2024-02-21] MEDS: SODIUM CHLORIDE 0.9% 1,000 ML IV STA (00:43)
[2024-02-21] MEDS: ONDANSETRON 4 MG/2 ML VIAL IVP STA (01:29)
[2024-02-21] MEDS: oxyCODONE/ACET 5/325 Prepack 4 PO STA (01:47)
[2024-02-21] MEDS: ONDANSETRON ODT 4 MG Prepack 2 TL PRN (02:17)
[2024-02-21 02:23] VITALS: BP 145/106; O2SAT 99
== END 2024-02-21 02:19 | disposition home or self-care (01) ==
LOC: ED 23:40
DX: R11.2 Nausea with vomiting, unspecified (principal); R10.84 Generalized abdominal pain; R19.7 Diarrhea, unspecified; E83.52 Hypercalcemia; D72.829 Elevated white blood cell count, unspecified; R79.89 Other specified abnormal findings of blood chemistry; F17.200 Nicotine dependence, unspecified, uncomplicated
CPT/HCPCS: 36415; 80053; 83690; 85025; 96365; 96375; 99284; A9270; J1170; J7040